=== PATIENT | female | born 1960 | race Hispanic/Latino ===

== ENCOUNTER 2017-05-13 10:50 | Day surgery (SDC) | payer MEDICAID ==
[2017-05-10 09:49] VITALS: BMI 32.1
[2017-05-13] MEDS ORDERED: Lidocaine 1% Inj (20ml) ONE (12:22)
[2017-05-13] MEDS ORDERED: Propofol 10 mg/ml Inj (20 ML) ONE ×3 (12:22→12:57)
[2017-05-13] MEDS ORDERED: Sodium Chloride 0.9% 1,000 ML IV SCH (13:15)
[2017-05-13 13:48] VITALS: RESP 19
[2017-05-13 14:24] VITALS: BP 148/75; PULSE 58; TEMP 97.9; O2SAT 100
[2017-05-13] MEDS ORDERED: Simethicone 40 mg/0.6 ml Liquid (30 ml) ONE (15:05)
== END 2017-05-13 15:00 | disposition home or self-care (01) ==
LOC: ENDO 10:50
PROVIDERS: ATTEND Internal Medicine
DX: K63.5 Polyp of colon (principal); K31.7 Polyp of stomach and duodenum; K57.30 Diverticulosis of large intestine without perforation or abscess without bleeding; K29.70 Gastritis, unspecified, without bleeding; K64.8 Other hemorrhoids; K59.00 Constipation, unspecified
CPT/HCPCS: 43239; 45380; 88305; 88342; J2704; J3010; J7040 ×2

== ENCOUNTER 2017-11-30 16:15 | Inpatient (IN) | payer MEDICAID ==
[2017-11-30] MEDS ORDERED: HYDROmorphone 0.5 mg/0.5 ml ISec IVP STA ×3 (16:40→22:47)
[2017-11-30] MEDS ORDERED: Sodium Chloride 0.9% 1,000 ML IV STA (16:41)
--- NOTE | 2017-11-30 16:48 | ED PDOC ---
Arrival/HPI - General Chief Complaint: Abdominal Pain Time Seen by Provider: 11/30/17 16:25 Historian: Patient - History of Present Illness Narrative History of Present Illness (Text): 11/30/17 16:35 A 57 year old female, whose past medical history includes hypertension and recent gallbladder surgery, presents to the emergency department complaining of severe diffused and increasing abdominal pain for 4 days. Patient reports having recent colescystecomy. Patient has decreased oral intake, and continues to take pain medications. Denies any fever, chills, nausea, vomiting, any urinary symptoms, or any other complaints. Patient denies any history of smoking and has unknown family history. PM:D Dr. Sam Nieto Time/Duration: < week (4 days) Symptom Onset: Gradual Symptom Course: Unchanged Past Medical History - Provider Review Nursing Documentation Reviewed: Yes - Infectious Disease Hx of Infectious Diseases: None - Reproductive Menopause: Yes - Cardiac Hx Pacemaker: No - Neurological Hx Paralysis: No - Hematological/Oncological Hx Blood Transfusions: No Hx Blood Transfusion Reaction: No - Musculoskeletal/Rheumatological Hx Musculoskeletal Disorders: No - Psychiatric Hx Emotional Abuse: No Hx Physical Abuse: No Hx Substance Use: No - Surgical History Hx Cholecystectomy: Yes - Anesthesia Hx Anesthesia Reactions: No Hx Malignant Hyperthermia: No - Suicidal Assessment Feels Threatened In Home Enviroment: No Family/Social History - Physician Review Nursing Documentation Reviewed: Yes Family/Social History: Unknown Family HX Smoking Status: Unknown If Ever Smoked Hx Alcohol Use: No Hx Substance Use: No Allergies/Home Meds Allergies/Adverse Reactions: Allergies iodine Allergy (Verified 11/30/17 16:28) URTICARIA Home Medications: Home Meds Medication Instructions Recorded Confirmed Atenolol [Tenormin] 50 mg PO DAILY 05/10/17 05/13/17 Cyclobenzaprine [Cyclobenzaprine 10 mg PO BID 05/10/17 05/13/17 HCl] Famotidine [Pepcid] 20 mg PO BID 05/10/17 05/13/17 Gabapentin [Neurontin] 300 mg PO DAILY 05/10/17 05/13/17 Omeprazole 20 mg PO DAILY 05/10/17 05/13/17 amLODIPine [Norvasc] 10 mg PO DAILY 05/10/17 05/13/17 Review of Systems - Review of Systems Constitutional: Other (weakness). absent: Fevers, Night Sweats Eyes: Normal ENT: Normal Respiratory: Normal Cardiovascular: Normal Gastrointestinal: Abdominal Pain, Other (decreased oral intake). absent: Nausea , Vomiting Genitourinary Female: Normal Musculoskeletal: Normal Skin: Normal Neurological: Normal Endocrine: Normal Hemo/Lymphatic: Normal Psychiatric: Normal Physical Exam Vital Signs Reviewed: Yes Vital Signs Temp Pulse Resp BP Pulse Ox 11/30/17 16:36 97.5 F L 88 18 168/99 H 97 Temperature: Afebrile Blood Pressure: Hypertensive Pulse: Regular Respiratory Rate: Normal Appearance: Positive for: Well-Appearing (well-hydrated) Pain Distress: Moderate Mental Status: Positive for: Alert and Oriented X 3 - Systems Exam Mouth: Present: Moist Mucous Membranes Respiratory/Chest: Present: Clear to Auscultation, Good Air Exchange. No: Respiratory Distress, Accessory Muscle Use Cardiovascular: Present: Regular Rate and Rhythm, Normal S1, S2. No: Murmurs Abdomen: Present: Tenderness (diffused tenderness to palpation), Scars (not inflammed and not infected). No: Distention, Normal Bowel Sounds, Rebound, Guarding, Mass/Organomegaly Neurological: Present: GCS=15, CN II-XII Intact, Speech Normal Skin: Present: Warm, Dry, Normal Color. No: Rashes Psychiatric: Present: Alert, Oriented x 3, Normal Insight, Normal Concentration Medical Decision Making ED Course and Treatment: 11/30/17 16:38 Impression: 57 year old female with diffused and increasing abdominal pain. Physical exam shows diffused tenderness to palpation to abdomen (no guarding, no rebound), surgical scars present (not inflammed/infected); no masses. Plan: -- Abd/Pelvis CT -- Dilaudid -- IV Fluids -- Labs -- Reassess and disposition Progress Notes: - RAD Interpretation Radiology Orders: 11/30/17 16:38 ABDOMEN & PELVIS [ABD PELVIS PO & IV CONTRAST] [CT] Stat - Medication Orders Current Medication Orders: Hydromorphone HCl (Dilaudid) 0.5 mg IVP STAT STA Stop: 11/30/17 16:41 Sodium Chloride (Sodium Chloride 0.9%) 1,000 mls @ 999 mls/hr IV .Q1H1M STA Stop: 11/30/17 17:41 - Scribe Statement The provider has reviewed the documentation as recorded by the Víctor Escobedo Provider Scribe Attestation: All medical record entries made by the Víctor were at my direction and personally dictated by me. I have reviewed the chart and agree that the record accurately reflects my personal performance of the history, physical exam, medical decision making, and the department course for this patient. I have also personally directed, reviewed, and agree with the discharge instructions and disposition. Disposition/Present on Arrival - Present on Arrival History of DVT/PE: No History of Uncontrolled Diabetes: No Urinary Catheter: No History of Decub. Ulcer: No History Surgical Site Infection Following: Abdominal Surgery - Disposition
[2017-11-30] MEDS ORDERED: Iohexol 350 MG/100 ML VIAL ONE (16:55)
[2017-11-30] MEDS ORDERED: Iohexol 240 (50 ml) ONE (16:55)
[2017-11-30] MEDS ORDERED: Barium Sulfate Susp 2.1% w/v, 2.0% w/w 450 mL Bottle PO ONE (17:06)
[2017-11-30 18:03] LABS: BASO # 0.01 K/mm3 (0.0-2.0); BASO % 0.1 % (0.0-3.0); EOS # 0.2 (0.0-0.7); EOS % 1.7 % (1.5-5.0); GRAN # 7.18 (1.4-6.5); GRAN % 76.7 % (50.0-68.0); LYMPH # 1.5 (1.2-3.4); LYMPH % 15.9 % (22.0-35.0); MEAN CELL VOLUME 91.7 fl (80.0-105.0); MEAN CORPUSCULAR HGB CONC 32.7 g/dl (31.0-37.0); MEAN PLATELET VOLUME 10.1 fl (7.0-11.0); MONO # 0.5 (0.1-0.6); MONO % 5.6 % (1.0-6.0); RBC 4.34 10^6/uL (3.5-6.1); RED CELL DISTRIBUTION WIDTH 13.3 % (11.5-14.5); WHITE BLOOD COUNT 9.4 10^3/ul (4.5-11.0)
[2017-11-30 18:17] LABS: ALB/GLOB RATIO 1.2 (1.1-1.8); ALBUMIN 3.9 g/dL (3.0-4.8); CALCIUM 9.9 mg/dL (8.4-10.5); GFR AFRICAN-AMERICAN > 60; GFR NON-AFRICAN AMERICAN > 60
[2017-11-30 18:22] LABS: ALT/SGPT 75 U/L (7-56); AST/SGOT 61 U/L (14-36); BLOOD UREA NITROGEN 17 mg/dL (7-21)
--- NOTE | 2017-11-30 19:33 | ED PDOC ---
Physical Exam Vital Signs Temp Pulse Resp BP Pulse Ox 11/30/17 16:36 97.5 F L 88 18 168/99 H 97 Medical Decision Making ED Course and Treatment: 11/30/17 19:00 Patient signed out to me by Dr. Renee. Pending CT scan abdomen and pelvis. Patient with history of recent laparoscopic gallbladder surgery. Patient presents for evaluation of continued abdomen pain following surgery. 12/01/17 00:01 CT results conveyed to me by [facility]. CT Abdomen and Pelvis shows: Cholecystectomy with abscess in the ashwin hepatis; possible periportal adenopathy; inflammation in the right upper quadrant with gastric and duodenal inflammation; free fluid and minimal free air; possible constipation. [employer] mortgage [employer] paged. 12/01/17 00:04 Case discussed with surgical specialist concrete block layer, who is aware and agrees with plan. 12/01/17 00:[address] Nieto, who is aware and agrees with plan. Accepts pt in to his service. Requests or Magdaleno on consult. not available. 12/01/17 01:12 Call was placed to Dr. Dolan, pending call back. Case discussed with surgical specialist, who agrees with management and antibiotics for now. - Lab Interpretations Lab Results: 11/30/17 17:32 11/30/17 17:32 Lab Results 11/30/17 17:32: Sodium 140, Potassium 4.7, Chloride 101, Carbon Dioxide 28, Anion Gap 15, BUN 17, Creatinine 0.5 L, Est GFR ( Amer) > 60, Est GFR ( Non-Af Amer) > 60, Random Glucose 128 H, Calcium 9.9, Total Bilirubin 0.7, AST 61 H, ALT 75 H, Alkaline Phosphatase 84, Total Protein 7.2, Albumin 3.9, Globulin 3.3, Albumin/Globulin Ratio 1.2 11/30/17 17:32: WBC 9.4, RBC 4.34, Hgb 13.0, Hct 39.8, MCV 91.7, MCH 30.0, MCHC 32.7, RDW 13.3, Plt Count 216, MPV 10.1, Gran % 76.7 H, Lymph % (Auto) 15.9 L, [place] % (Auto) 5.6, Eos % (Auto) 1.7, Baso % (Auto) 0.1, Gran # 7.18 H, Lymph # ( Auto) 1.5, [place] # (Auto) 0.5, Eos # (Auto) 0.2, Baso # (Auto) 0.01 I have reviewed the lab results: Yes - RAD Interpretation Radiology Orders: 11/30/17 18:10 CHEST,ABDOMEN, PELVIS W/O CONT [CT] Stat Efficiency [employer] Blasting: Radiologist - Medication Orders Current Medication Orders: Atenolol (Tenormin) 50 mg PO DAILY CHANCE Hydromorphone HCl (Dilaudid) 1 mg IVP Q4H PRN PRN Reason: Pain, severe (8-10) Sodium Chloride (Sodium Chloride 0.45%) 1,000 mls @ 70 mls/hr IV .[id number] CHANCE Pantoprazole Sodium (Protonix Inj) 40 mg IVP DAILY CHANCE Discontinued Medications Amlodipine Besylate (Norvasc) 5 mg PO STAT STA Stop: 12/01/17 00:41 Hydromorphone HCl (Dilaudid) 0.5 mg IVP STAT STA Stop: 11/30/17 16:41 Last Admin: 11/30/17 17:52 Dose: 0.5 mg MAR Pain Assessment Document 11/30/17 17:52 [email or web address] (Rec: 11/30/17 17:52 [id number] Pain Reassessment Is this a pain reassessment? No Sleep Is patient sleeping during reassessment? No Pain Scale Used Pain Scale Used Numeric Location Pain Location Body Site Generalized Description Description Constant Intensity of Pain at present 8 Pain Behavior Facial Grimacing Aggravating Factors Changing Position Alleviating Factors/Management Position Change Techniques Alleviating Factors Medication IVP Administration Document 11/30/17 17:52 [email or web address] (Rec: 11/30/17 17:52 [email or web address] [id number]) Charges for Administration # of IVP Administrations 1 Hydromorphone HCl (Dilaudid) 1 mg IVP STAT STA Stop: 11/30/17 22:48 Last Admin: 11/30/17 23:13 Dose: 1 mg MAR Pain Assessment Document 11/30/17 23:13 JOL (Rec: 11/30/17 23:13 JOL [id number]) Pain Reassessment Is this a pain reassessment? No Sleep Is patient sleeping during reassessment? No Presence of Pain Presence of Pain Yes Pain Scale Used Pain Scale Used Numeric Location Pain Location Body Site Abdomen IVP Administration Document 11/30/17 23:13 JOConnor (Rec: 11/30/17 23:13 JOL [id number]) Charges for Administration # of IVP Administrations 1 Sodium Chloride (Sodium Chloride 0.9%) 1,000 mls @ 999 mls/hr IV .Q1H1M STA Stop: 11/30/17 17:41 Last Admin: 11/30/17 17:52 Dose: 999 mls/hr eMAR Start Stop Document 11/30/17 17:52 [email or web address] (Rec: 11/30/17 17:52 CASTS1 [id number]) Intravenous Solution Start Date 11/30/17 Start Time 17:52 End Date 11/30/17 Piperacillin Sod/Tazobactam Sod (Zosyn 3.375 In Ns 100ml) 100 mls @ 200 mls/hr IV STAT STA PRN Reason: Protocol Stop: 12/01/17 00:30 Last Admin: 12/01/17 00:28 Dose: 200 mls/hr eMAR Start Stop Document 12/01/17 00:28 RG (Rec: 12/01/17 00:37 RG [id number]) Intravenous Solution Start Date 12/01/17 Start Time 00:28 Ondansetron HCl (Zofran Inj) 4 mg IVP STAT STA Stop: 11/30/17 17:26 Last Admin: 11/30/17 17:52 Dose: 4 mg IVP Administration Document 11/30/17 17:52 [email or web address] (Rec: 11/30/17 17:52 [email or web address] [id number]) Charges for Administration # of IVP Administrations 1 - Scribe Statement The provider has reviewed the documentation as recorded by the Víctor Sánchez Provider Scribe Attestation: All medical record entries made by the Scribe were at my direction and personally dictated by me. I have reviewed the chart and agree that the record accurately reflects my personal performance of the history, physical exam, medical decision making, and the department course for this patient. I have also personally directed, reviewed, and agree with the discharge instructions and disposition. Disposition/Present on Arrival - Present on Arrival Any Indicators Present on Arrival: No History of DVT/PE: No History of Uncontrolled Diabetes: No Urinary Catheter: No History of Decub. Ulcer: No History Surgical Site Infection Following: None - Disposition Have Diagnosis and Disposition been Completed?: Yes Diagnosis: Intractable abdominal pain, History of laparoscopic cholecystectomy Disposition: HOSPITALIZED Disposition Time: 23:46 Patient Plan: Observation Patient Problems: Current Active Problems Problem Status Onset History of laparoscopic cholecystectomy Acute Intractable abdominal pain Acute Condition: STABLE
--- NOTE | 2017-11-30 23:53 | CT ---
EXAM: CT Chest Without Intravenous Contrast CLINICAL HISTORY: 57 years old, female; Pain; Abdominal pain; Generalized; Chest pain; Type not specified; Additional info: Post-op pain TECHNIQUE: Axial computed tomography images of the chest without intravenous contrast. All CT scans at this facility use one or more dose reduction techniques, viz.: automated exposure control; ma/kV adjustment per patient size (including targeted exams where dose is matched to indication; i.e. head); or iterative reconstruction technique. Coronal and sagittal reformatted images were created and reviewed. COMPARISON: There are no prior studies for comparison. FINDINGS: Artifacts: Motion artifact degrades image quality. Lungs and pleural spaces: Trachea and main bronchi are patent.There is no pneumothorax. There is bilateral lower lobe airspace disease with air bronchograms. There is a small left pleural effusion. There is trace right effusion. Heart and vasculature: Heart size is normal. There are coronary artery calcifications.Aorta and main pulmonary artery are normal in caliber. There are vascular calcifications Mediastinum: There are shotty mediastinal nodes. Miesha and esophagus is unremarkable. There is a small hiatal hernia. Thyroid: Thyroid is unremarkable Bones/joints: There are degenerative changes in the osseus structures. Soft tissues: unremarkable Upper abdomen: Refer to follow report for abdominal findings IMPRESSION: Bibasilar airspace disease, atelectasis and/or infiltrate with small effusions left greater than right EXAM: CT Abdomen and Pelvis Without Intravenous Contrast EXAM DATE/TIME: 11/30/2017 6:10 PM CLINICAL HISTORY: 57 years old, female; Pain; Abdominal pain; Generalized; Chest pain; Type not specified; Additional info: Post-op pain TECHNIQUE: Axial computed tomography images of the abdomen and pelvis without intravenous contrast. All CT scans at this facility use one or more dose reduction techniques, viz.: automated exposure control; ma/kV adjustment per patient size (including targeted exams where dose is matched to indication; i.e. head); or iterative reconstruction technique. COMPARISON: CT - ABD PELVIS PO CONTRAST ONLY 2017-02-26 10:44 FINDINGS: Lower thorax: Refer to prior report or chest findings ABDOMEN: Liver: unremarkable Gallbladder and bile ducts: There is been interval cholecystectomy. There are clips in the ashwin hepatis. There is a complex collection in the ashwin hepatis containing fluid and air.There is prominence of the common duct. Pancreas: Pancreas is mildly atrophic. Spleen: Spleen is unremarkable. There is an accessory spleen in the left upper quadrant. Adrenals: Right adrenal is unremarkable. There is diffuse thickening of the left adrenal. Kidneys and ureters: unremarkable Stomach and bowel: Stomach is distended with an air-fluid level. There is thickening of the gastric antral wall. There is duodenal wall thickening. Rotation is normal. There is no small bowel obstruction. Small bowel is partially opacified with contrast. Terminal ileum is unremarkable. Clip no pericecal there is moderate stool in the colon. Appendix: See stomach and bowel PELVIS: Bladder: unremarkable Reproductive: Uterus and adnexal structures are unremarkable. ABDOMEN and PELVIS: Intraperitoneal space: There is free fluid in the abdomen. There is a small amount of fluid in the pelvis. There is trace free air in the upper abdomen Bones/joints: There are degenerative changes in the osseus structures. There is sclerosis at the sacroiliac joints. Soft tissues: There is postoperative edema in the anterior abdominal wall. There is a small fat containing umbilical hernia. There is inflammation and edema in the right upper quadrant. Vasculature: There are vascular calcifications. Lymph nodes: There is no para-aortic adenopathy. There may be multiple enlarged nodes in the ashwin hepatis. IMPRESSION: Cholecystectomy with abscess in the ashwin hepatis; possible periportal adenopathy; inflammation in the right upper quadrant with gastric and duodenal inflammation; free fluid and minimal free air; possible constipation Additional nonemergent findings as described above.
[2017-12-01] MEDS ORDERED: Piperacillin/Tazobact 3.375 gm 100 ML IV STA (00:01)
[2017-12-01] MEDS ORDERED: HYDROmorphone 0.5 mg/0.5 ml ISec IVP PRN (00:37)
[2017-12-01] MEDS ORDERED: Metoprolol 1 mg/ml Inj IV SCH (00:45)
--- NOTE | 2017-12-01 01:45 | CP.PCM.CON ---
History of Present Illness - History of Present Illness History of Present Illness: Surgery Consult note. Dr. Dolan 57yo F with PMHx of HTN here for evaluation of abdominal pain. Patient states that she had Lap Cholecystectomy by Dr. Suarez on Wednesday. She was discharged home on Wednesday. Yesterday, she started having severe RUQ pain, described as off and on, severe, does not radiate. Does report nausea and vomiting, non-bloody and non-bilious. Denies any fevers, does report chills, diaphoresis. Last food was yesterday, cookies and milk. Does report that she does not want to eat and is worried about worsening pain. Denies any urinary symptoms. No Chest Pain. No SOB. No Bowel habit changes. Has been taking tramadol at home for pain control with mild relief. PMHx: HTN PSHx: Lap Kalee on 11/26/[address] Suarez Social Hx: Denies Tobacco. Denies ETOH. Denies illicit drugs. Allergy: Iodine Review of Systems - Review of Systems All systems: reviewed and no additional remarkable complaints except - Constitutional Constitutional: Anorexia, Chills. absent: Fever - Cardiovascular Cardiovascular: absent: Chest Pain, Dyspnea - Respiratory Respiratory: absent: Dyspnea - Gastrointestinal Gastrointestinal: Abdominal Pain, Nausea, Vomiting. absent: Belching, Diarrhea , Dyspepsia - Genitourinary Genitourinary: absent: Dysuria - Musculoskeletal Musculoskeletal: absent: Back Pain Past Patient History - Infectious Disease Hx of Infectious Diseases: None - Past Social History Smoking Status: Unknown If Ever Smoked - CARDIAC Hx Pacemaker: No - NEUROLOGICAL Hx Paralysis: No - HEMATOLOGICAL/ONCOLOGICAL Hx Blood Transfusions: No Hx Blood Transfusion Reaction: No - MUSCULOSKELETAL/RHEUMATOLOGICAL Hx Musculoskeletal Disorders: No - PSYCHIATRIC Hx Emotional Abuse: No Hx Physical Abuse: No Hx Substance Use: No - SURGICAL HISTORY Hx Cholecystectomy: Yes - ANESTHESIA Hx Anesthesia Reactions: No Hx Malignant Hyperthermia: No Meds Allergies/Adverse Reactions: Allergies Allergy/AdvReac Type Severity Reaction Status Date / Time iodine Allergy URTICARIA Verified 11/30/17 16:28 - Medications Medications: Current Medications Atenolol (Tenormin) 50 mg PO DAILY CHANCE Clonidine HCl (Catapres) 0.1 mg PO Q6H PRN PRN Reason: Systolic Blood Pressure Hydromorphone HCl (Dilaudid) 1 mg IVP Q4H PRN PRN Reason: Pain, severe (8-10) Sodium Chloride (Sodium Chloride 0.45%) 1,000 mls @ 70 mls/hr IV .[id number] CHANCE Piperacillin Sod/Tazobactam Sod (Zosyn 3.375 In Ns 100ml) 100 mls @ 200 mls/hr IVPB Q6 CHANCE PRN Reason: Protocol Stop: 12/01/17 12:29 Pantoprazole Sodium (Protonix Inj) 40 mg IVP DAILY CHANCE Tramadol HCl (Ultram) 50 mg PO TID PRN PRN Reason: Pain, moderate (4-7) Physical Exam - Constitutional Appears: Well, Non-toxic, No Acute Distress - Head Exam Head Exam: ATRAUMATIC, NORMAL INSPECTION, NORMOCEPHALIC - Eye Exam Eye Exam: EOMI, Normal appearance. absent: Scleral icterus - ENT Exam ENT Exam: Mucous Membranes Moist - Respiratory Exam Respiratory Exam: NORMAL BREATHING PATTERN. absent: Accessory Muscle Use, Respiratory Distress - Cardiovascular Exam Cardiovascular Exam: absent: JVD - GI/Abdominal Exam Additional comments: right upper quadrant tenderness to palpation. laprascopic surgery wounds noted with steri-strips in place. Skin edges well approximated. Does exhibit some voluntary guarding. Non distended. No rebound. - Extremities Exam Extremities exam: Positive for: normal inspection. Negative for: calf tenderness - Neurological Exam Neurological exam: Alert, Oriented x3 - Psychiatric Exam Psychiatric exam: Normal Affect, Normal Mood - Skin Skin Exam: Dry, Intact, Normal Color, Warm Results - Vital Signs Recent Vital Signs: Last Vital Signs Temp 97.5 F L 11/30/17 16:36 Pulse 108 H 12/01/17 01:12 Resp 18 12/01/17 01:07 BP 175/93 H 12/01/17 01:12 Pulse Ox 97 12/01/17 01:07 - Labs Result Diagrams: 12/01/17 05:45 12/02/17 05:30 Assessment & Plan - Assessment and Plan (Free Text) Assessment: 57yo F s/p Lap Kalee on 11/26/17, here with post-operative pain. CT scan noted with fluid collection at the ashwin hepatis Plan: - Please consult original operating surgeon, Dr. Suarez - Agree with Abx - Call placed out to Dr. Nieto at 6:38AM to discuss patient care. Awaiting call back. - Continue post-operative surgical management as per Dr. Suarez, Original operating surgeon. Further recs as per Dr. Magdaleno Valera PGY1 surgery pager: [phone]
[2017-12-01 02:30] VITALS: BMI 30.4
[2017-12-01] MEDS: Sodium Chloride 0.45% 1,000 ML IV SCH ×2 (02:44→17:12)
[2017-12-01] MEDS: Piperacillin/Tazobact 3.375 gm 100 ML IVPB SCH ×3 (06:28→17:12)
[2017-12-01 06:35] LABS: HEMOGLOBIN 11.8 g/dL (12.0-16.0); MEAN CELL VOLUME 89.2 fl (80.0-105.0); MEAN CORPUSCULAR HEMOGLOBIN 28.9 pg (25.0-35.0); MEAN CORPUSCULAR HGB CONC 32.3 g/dl (31.0-37.0); MEAN PLATELET VOLUME 9.8 fl (7.0-11.0); RBC 4.09 10^6/uL (3.5-6.1); RED CELL DISTRIBUTION WIDTH 13.1 % (11.5-14.5); WHITE BLOOD COUNT 7.7 10^3/ul (4.5-11.0)
[2017-12-01] MEDS: Morphine 2 mg/ml ISec IVP PRN ×2 (09:11→13:38)
[2017-12-01 10:05] LABS: ALB/GLOB RATIO 1.1 (1.1-1.8); ALBUMIN 3.4 g/dL (3.0-4.8); ALT/SGPT 110 U/L (7-56); AST/SGOT 99 U/L (14-36); BLOOD UREA NITROGEN 11 mg/dL (7-21); CALCIUM 9.2 mg/dL (8.4-10.5); GFR AFRICAN-AMERICAN > 60; GFR NON-AFRICAN AMERICAN > 60
--- NOTE | 2017-12-01 10:35 | CON ---
DATE: 12/01/2017 CARDIOLOGY CONSULTATION HISTORY OF PRESENT ILLNESS: The patient is a 57-year-old woman who presents with nausea and vomiting. She apparently had a LAP ANTHONY performed on Wednesday. She was discharged earlier this week. She then started having upper quadrant pain including nausea and vomiting. PAST MEDICAL HISTORY: Free of cardiac disease. She does suffer from hypertension in which is well-controlled on medications. Negative diabetes mellitus noted. No previous cardiac history. No chest pain or shortness of breath. SOCIAL HISTORY: The patient does not smoke. REVIEW OF SYSTEMS: Fourteen-point review of systems was reviewed in detail. No cardiac symptomatology is noted. PHYSICAL EXAMINATION: VITAL SIGNS: The blood pressure is 159/81, the heart rate is 100. NECK: Negative JVD. LUNGS: Without rales. HEART: With S1, S2. EXTREMITIES: Without edema. LABORATORY DATA: Laboratories includes EKG, which is unremarkable. Hemoglobin is 11.8. Chemistries: BUN and creatinine unremarkable. LFTs are elevated. IMPRESSION: 1. Status post laparoscopic cholecystectomy last week. 2. Hypertension. 3. No evidence for acute coronary syndrome. 4. Increased liver function tests. 5. Borderline diabetes mellitus. PLAN: Given these findings, the patient has currently been placed on clonidine for better blood pressure control. If the patient becomes n.p.o., we will then transfer the patient to a clonidine patch as it bridged until her GI symptomatology is resolved. Sal Gallo MD
--- NOTE | 2017-12-01 15:02 | CP.PCM.CON ---
<GastonHamzah - Last Filed: 12/01/17 14:57> History of Present Illness - History of Present Illness History of Present Illness: GI Consult Note - Dr. Mattson 57 F with a PMHx of HTN [place] [facility] [place] of abdominal pain. Pt was recently discharged from [facility] on 11/26/17 after a lap cholecystectomy with Dr. Suarez. Pt was recovering well over the weekend, however after she ate yesterday she began to experience worsening abdominal pain localized to the RUQ without radiation. She described the pain as sharp stabbing in quality and intermittent. Pt experience nausea and vomiting however has felt relief with zofran. Pt denied fever, chills, sob, chest pains, abdominal pains, vomiting, diarrhea or urinary symptoms. Pt noted that she has not had a bm in over 3 days. PMHx: HTN PSHx: Lap Kalee on 11/26/[address] Suarez Social Hx: Denies Tobacco. Denies ETOH. Denies illicit drugs. FamilyHx: noncontributory Allergy: Iodine Meds: MAR reviewed Review of Systems - Review of Systems Review of Systems: as per HPI otherwise negative Past Patient History - Infectious Disease Hx of Infectious Diseases: None - Past Social History Smoking Status: Unknown If Ever Smoked - CARDIAC Hx Pacemaker: No - PULMONARY Hx Respiratory Disorders: Yes Hx Asthma: Yes (seasonal) - NEUROLOGICAL Hx Paralysis: No - HEENT Hx HEENT Problems: Yes (wears glasses) - RENAL Hx Chronic Kidney Disease: No - ENDOCRINE/METABOLIC Hx Endocrine Disorders: No - HEMATOLOGICAL/ONCOLOGICAL Hx Blood Transfusions: No Hx Blood Transfusion Reaction: No - INTEGUMENTARY Hx Dermatological Problems: No - MUSCULOSKELETAL/RHEUMATOLOGICAL Hx Musculoskeletal Disorders: No - GASTROINTESTINAL Hx Gastrointestinal Disorders: No - GENITOURINARY/GYNECOLOGICAL Hx Genitourinary Disorders: No - PSYCHIATRIC Hx Emotional Abuse: No Hx Physical Abuse: No Hx Substance Use: No - SURGICAL HISTORY Hx Cholecystectomy: Yes - ANESTHESIA Hx Anesthesia Reactions: No Hx Malignant Hyperthermia: No Meds Allergies/Adverse Reactions: Allergies Allergy/AdvReac Type Severity Reaction Status Date / Time iodine Allergy URTICARIA Verified 11/30/17 16:28 - Medications Medications: Current Medications Atenolol (Tenormin) 50 mg PO DAILY [facility] Last Admin: 12/01/17 09:12 Dose: 50 mg Clonidine HCl (Catapres) 0.1 mg PO Q6H PRN PRN Reason: Systolic Blood Pressure Sodium Chloride (Sodium Chloride 0.45%) 1,000 mls @ 70 mls/hr IV .[id number] [facility] Last Admin: 12/01/17 02:44 Dose: 70 mls/hr Piperacillin Sod/Tazobactam Sod (Zosyn 3.375 In Ns 100ml) 100 mls @ 200 mls/hr IVPB Q6 [facility] PRN Reason: Protocol Stop: 12/08/17 06:01 Last Admin: 12/01/17 12:42 Dose: 200 mls/hr Morphine Sulfate (Morphine) 2 mg IVP Q4H PRN PRN Reason: Pain, moderate (4-7) Last Admin: 12/01/17 13:38 Dose: 2 mg Ondansetron HCl (Zofran Inj) 4 mg IVP Q6H PRN PRN Reason: Nausea/Vomiting Last Admin: 12/01/17 10:08 Dose: 4 mg Pantoprazole Sodium (Protonix Inj) 40 mg IVP DAILY [facility] Last Admin: 12/01/17 09:12 Dose: 40 mg Tramadol HCl (Ultram) 50 mg PO TID PRN PRN Reason: Pain, moderate (4-7) Last Admin: 12/01/17 10:13 Dose: 50 mg Physical Exam - Constitutional Appears: No Acute Distress - Head Exam Head Exam: ATRAUMATIC, NORMAL INSPECTION, NORMOCEPHALIC - Eye Exam Eye Exam: EOMI, Normal appearance, PERRL Pupil Exam: NORMAL ACCOMODATION, PERRL - ENT Exam ENT Exam: Mucous Membranes Moist, Normal Exam - Neck Exam Neck exam: Positive for: Normal Inspection - Respiratory Exam Respiratory Exam: Clear to Auscultation Bilateral, NORMAL BREATHING PATTERN - Cardiovascular Exam Cardiovascular Exam: REGULAR RHYTHM, +S1, +S2 - GI/Abdominal Exam GI & Abdominal Exam: Normal Bowel Sounds, Soft, Tenderness (RUQ) - Extremities Exam Extremities exam: Positive for: normal inspection - Back Exam Back exam: NORMAL INSPECTION - Neurological Exam Neurological exam: Alert, CN II-XII Intact, Oriented x3, Reflexes Normal - Psychiatric Exam Psychiatric exam: Normal Affect, Normal Mood - Skin Skin Exam: Dry, Intact, Normal Color, Warm Results - Vital Signs Recent Vital Signs: Last Vital Signs Temp 98.6 F 12/01/17 06:00 Pulse 99 H 12/01/17 06:00 Resp 18 12/01/17 06:00 BP 146/88 12/01/17 06:00 Pulse Ox 95 12/01/17 06:00 - Labs Result Diagrams: 12/01/17 05:45 12/01/17 06:30 Labs: Laboratory Results - last 24 hr 12/01/17 12/01/17 12/01/17 05:45 05:45 06:30 WBC 7.7 RBC 4.09 Hgb 11.8 L Hct 36.5 MCV 89.2 MCH 28.9 MCHC 32.3 RDW 13.1 Plt Count 256 MPV 9.8 Sodium 138 Potassium 4.0 Chloride 99 Carbon Dioxide 30 Anion Gap 13 BUN 11 Creatinine 0.5 L Est GFR ( Amer) > 60 Est GFR (Non-Af Amer) > 60 Random Glucose 146 H Calcium 9.2 Total Bilirubin 0.6 AST 99 H D ALT 110 H Alkaline Phosphatase 88 Total Protein 6.6 Albumin 3.4 Globulin 3.2 Albumin/Globulin Ratio 1.1 Procalcitonin 0.35 Assessment & Plan - Assessment and Plan (Free Text) Assessment: 57 F with a PMHx of HTN and cholecystitis s/p Laproscopic Cholecystectomy on , admitted with post-operative pain. CT Abdomen demonstrated fluid collection/abscess at the ashwin hepatis. Recommend MRCP and HIDA to evaluate for bile leak. Maintain NPO, Continue IV Abx, pain control, zofran. Will discuss with Dr. Suarez and surgical team for any considerations of intervention. Discussed with attending <Darvin Mattson V - Last Filed: 12/01/17 23:29> Meds - Medications Medications: Current Medications Albuterol/Ipratropium (Duoneb 3 Mg/0.5 Mg (3 Ml) Ud) 3 ml IH QID [facility] Last Admin: 12/01/17 20:05 Dose: 3 ml Atenolol (Tenormin) 50 mg PO DAILY [facility] Last Admin: 12/01/17 09:12 Dose: 50 mg Clonidine HCl (Catapres) 0.1 mg PO Q6H PRN PRN Reason: Systolic Blood Pressure Heparin Sodium (Porcine) (Heparin) 5,000 units SC Q12 [facility] PRN Reason: Protocol Last Admin: 12/01/17 22:58 Dose: 5,000 units Sodium Chloride (Sodium Chloride 0.45%) 1,000 mls @ 70 mls/hr IV .[id number] [facility] Last Admin: 12/01/17 17:12 Dose: 70 mls/hr Ceftriaxone Sodium (Rocephin 1 Gram Ivpb) 1 gm in 100 mls @ 100 mls/hr IVPB DAILY [facility] PRN Reason: Protocol Stop: 12/06/17 23:59 Morphine Sulfate (Morphine) 4 mg IVP Q4H PRN PRN Reason: Pain, moderate (4-7) Last Admin: 12/01/17 17:28 Dose: 4 mg Ondansetron HCl (Zofran Inj) 4 mg IVP Q6H PRN PRN Reason: Nausea/Vomiting Last Admin: 12/01/17 17:12 Dose: 4 mg Oxycodone/Acetaminophen (Percocet 5/325 Mg Tab) 1 tab PO Q4H PRN PRN Reason: Pain, Mild (1-3) Stop: 12/04/17 18:23 Last Admin: 12/01/17 20:55 Dose: 1 tab Pantoprazole Sodium (Protonix Inj) 40 mg IVP DAILY [facility] Last Admin: 12/01/17 09:12 Dose: 40 mg Tramadol HCl (Ultram) 50 mg PO TID [facility] Last Admin: 12/01/17 17:12 Dose: 50 mg Results - Vital Signs Recent Vital Signs: Last Vital Signs Temp 98.1 F 12/01/17 16:00 Pulse 85 12/01/17 20:13 Resp 19 12/01/17 16:00 BP 151/92 H 12/01/17 16:00 Pulse Ox 92 L 12/01/17 16:00 - Labs Result Diagrams: 12/01/17 05:45 12/01/17 06:30 Labs: Laboratory Results - last 24 hr 12/01/17 12/01/17 12/01/17 05:45 05:45 06:30 WBC 7.7 RBC 4.09 Hgb 11.8 L Hct 36.5 MCV 89.2 MCH 28.9 MCHC 32.3 RDW 13.1 Plt Count 256 MPV 9.8 Sodium 138 Potassium 4.0 Chloride 99 Carbon Dioxide 30 Anion Gap 13 BUN 11 Creatinine 0.5 L Est GFR ( Amer) > 60 Est GFR (Non-Af Amer) > 60 Random Glucose 146 H Calcium 9.2 Total Bilirubin 0.6 AST 99 H D ALT 110 H Alkaline Phosphatase 88 Total Protein 6.6 Albumin 3.4 Globulin 3.2 Albumin/Globulin Ratio 1.1 Procalcitonin 0.35 Attending/Attestation - Attestation I have personally seen and examined this patient.: Yes I have fully participated in the care of the patient.: Yes I have reviewed all pertinent clinical information: Yes Notes (Text): This is an addendum to GI progress report dictated by the Emulsification Operator.The patient was seen and examined earlier. Medical records, lab studies, imagings were reviewed. Last 24 hours events reviewed. Agreed with the above treatment plan as outlined in Emulsification Operator 's notes the with the addition of the following CT scan reviewed Discussed with Dr. Dolan Discussed with the patient and the patient's family at length previous GI workup was reviewed Patient had endoscopic evaluations done by Dr. Shelley in the past patient did have EGD and colonoscopy done discussed with the Dr. Salmeron Patient will be followed by Dr. Nieto for further GI workup 12/01/17 23:24
[2017-12-01] MEDS ORDERED: Gadodiamide 287 MG/ML VIAL (15ML) IV ONE (15:27)
--- NOTE | 2017-12-01 15:59 | NM ---
PROCEDURE: Nuclear Medicine Hepatobiliary Scan HISTORY: s/p labcholy sever pain COMPARISON: None available. TECHNIQUE: 6.8 mCi of technetium 99m Mebrofenin was administered intravenously. Planar images of the abdomen were obtained at 5 min intervals to 60 mins. Delayed images were also obtained. FINDINGS: The radionuclide initially accumulates in the gallbladder fossa and that extends to the left along the inferior border of the liver and into the left upper quadrant. Findings are consistent with a biliary leak. A message was left with Dr. Dolan at 4 p.m. IMPRESSION: Study positive for biliary leak
--- NOTE | 2017-12-01 16:44 | CP.PCM.CON ---
History of Present Illness - History of Present Illness History of Present Illness: 57 year old female with PMH of HTN just had laparoscopic cholecystectomy done Wednesday last week. She was doing well until yesterday when she had worsening right upper quadrant abdominal pain which was intermittent. This was associated with nausea and vomiting. She denies fever or chills, no headache or dizziness, no chest pain, no SOB, no cough or rhinorrhea, no diarrhea, no dysuria, no sore throat, no dysphagia, but she does have anorexia. CT scan done on this admission is showing possible abscess around the previous gallbladder site. Infectious Diseases consult is requested to further evaluate and manage. Review of Systems - Review of Systems All systems: reviewed and no additional remarkable complaints except (as per HPI ) Past Patient History - Infectious Disease Hx of Infectious Diseases: None - Past Social History Smoking Status: Unknown If Ever Smoked - CARDIAC Hx Pacemaker: No - PULMONARY Hx Respiratory Disorders: Yes Hx Asthma: Yes (seasonal) - NEUROLOGICAL Hx Paralysis: No - HEENT Hx HEENT Problems: Yes (wears glasses) - RENAL Hx Chronic Kidney Disease: No - ENDOCRINE/METABOLIC Hx Endocrine Disorders: No - HEMATOLOGICAL/ONCOLOGICAL Hx Blood Transfusions: No Hx Blood Transfusion Reaction: No - INTEGUMENTARY Hx Dermatological Problems: No - MUSCULOSKELETAL/RHEUMATOLOGICAL Hx Musculoskeletal Disorders: No - GASTROINTESTINAL Hx Gastrointestinal Disorders: No - GENITOURINARY/GYNECOLOGICAL Hx Genitourinary Disorders: No - PSYCHIATRIC Hx Emotional Abuse: No Hx Physical Abuse: No Hx Substance Use: No - SURGICAL HISTORY Hx Cholecystectomy: Yes - ANESTHESIA Hx Anesthesia Reactions: No Hx Malignant Hyperthermia: No Meds Allergies/Adverse Reactions: Allergies Allergy/AdvReac Type Severity Reaction Status Date / Time iodine Allergy URTICARIA Verified 11/30/17 16:28 - Medications Medications: Current Medications Atenolol (Tenormin) 50 mg PO DAILY [facility] Clonidine HCl (Catapres) 0.1 mg PO Q6H PRN PRN Reason: Systolic Blood Pressure Sodium Chloride (Sodium Chloride 0.45%) 1,000 mls @ 70 mls/hr IV .[id number] [facility] Last Admin: 12/01/17 02:44 Dose: 70 mls/hr Piperacillin Sod/Tazobactam Sod (Zosyn 3.375 In Ns 100ml) 100 mls @ 200 mls/hr IVPB Q6 [facility] PRN Reason: Protocol Stop: 12/08/17 06:01 Last Admin: 12/01/17 06:28 Dose: 200 mls/hr Morphine Sulfate (Morphine) 2 mg IVP Q4H PRN PRN Reason: Pain, moderate (4-7) Ondansetron HCl (Zofran Inj) 4 mg IVP Q6H PRN PRN Reason: Nausea/Vomiting Pantoprazole Sodium (Protonix Inj) 40 mg IVP DAILY [facility] Tramadol HCl (Ultram) 50 mg PO TID PRN PRN Reason: Pain, moderate (4-7) Last Admin: 12/01/17 04:12 Dose: 50 mg Physical Exam - Constitutional Appears: Non-toxic - Head Exam Head Exam: NORMAL INSPECTION - ENT Exam ENT Exam: Mucous Membranes Moist - Neck Exam Neck exam: Negative for: Meningismus - Respiratory Exam Respiratory Exam: Decreased Breath Sounds. absent: Rales - Cardiovascular Exam Cardiovascular Exam: +S1, +S2 - GI/Abdominal Exam GI & Abdominal Exam: Soft, Tenderness (RUQ area). absent: Distended, Firm, Guarding, Rebound, Rigid Results - Vital Signs Recent Vital Signs: Last Vital Signs Temp 98.4 F 12/01/17 02:00 Pulse 108 H 12/01/17 02:00 Resp 20 12/01/17 02:00 BP 159/81 H 12/01/17 02:00 Pulse Ox 97 12/01/17 01:07 - Labs Result Diagrams: 12/01/17 05:45 12/01/17 06:30 Labs: Laboratory Results - last 24 hr 12/01/17 05:45 WBC 7.7 RBC 4.09 Hgb 11.8 L Hct 36.5 MCV 89.2 MCH 28.9 MCHC 32.3 RDW 13.1 Plt Count 256 MPV 9.8 Assessment & Plan - Assessment and Plan (Free Text) Plan: Assessment Consider right upper quadarant area intra-abdominal fluid collection R/O abscess S/P laparoscopic cholecystectomy HTN Plan Started patient on Zosyn pending blood cx; follow up plan for drainage of the fluid collection will monitor clinically
[2017-12-01] MEDS: Morphine 4 mg/ml ISec IVP PRN (17:28)
[2017-12-01] MEDS: Albuterol-Ipratrop 3 mg / 0.5 (3 ml) UD IH SCH (20:05)
[2017-12-01] MEDS: Oxycodone/Acetaminophen 5/325 mg Tab PO PRN (20:55)
[2017-12-02] MEDS: Oxycodone/Acetaminophen 5/325 mg Tab PO PRN ×3 (02:32→20:05)
[2017-12-02] MEDS: Sodium Chloride 0.45% 1,000 ML IV SCH ×2 (02:33→09:49)
[2017-12-02] MEDS: Morphine 4 mg/ml ISec IVP PRN ×2 (03:40→11:30)
[2017-12-02 07:08] LABS: ALBUMIN 3.1 g/dL (3.0-4.8); ALT/SGPT 134 U/L (7-56); AST/SGOT 90 U/L (14-36); BLOOD UREA NITROGEN 11 mg/dL (7-21); CALCIUM 9.1 mg/dL (8.4-10.5); GFR AFRICAN-AMERICAN > 60; GFR NON-AFRICAN AMERICAN > 60
[2017-12-02] MEDS: Albuterol-Ipratrop 3 mg / 0.5 (3 ml) UD IH SCH ×5 (07:25→22:51)
--- NOTE | 2017-12-02 07:38 | CON ---
DATE: HISTORY OF PRESENT ILLNESS: This is a 57-year-old female who presented to the emergency room with postop day #4 with right upper quadrant pain as well as umbilical pain. She was admitted for more study for post cholecystectomy pain. No nausea, no vomiting, no fever, no chills. She was tolerating diet. Her labs were completely normal. She had CT scan that was seen as possible abscess, while in fact, it is more like Surgicel that was placed in the liver bed. The story with this patient is that she was initially admitted to [facility] for cholelithiasis and diffuse calcinosis of the gallbladder, and she was discharged to home. She continued to suffer pain in recurrent nature with meals and she was admitted to the [facility] for severe abdominal pain. So, she had laparoscopic cholecystectomy 5 days ago and the pathology came back as positive for acute and chronic cholecystitis with cholelithiasis. During her surgery, the large gallbladder was embedded in the lower portion in the liver; so we have to dig it out and she had some bleeding from the liver bed for which we have to place 2 sheets of Surgicel during this case. Postop we left also a drain, and postop she did well. She was tolerating diet right away, and the SHELBY drain was actually minimal; so, we decided to take it before discharge on postop day #3. PAST MEDICAL HISTORY: Hypertension only. PAST SURGICAL HISTORY: Unknown. ALLERGIES: NONE. MEDICATIONS AT HOME: She is using amlodipine and atenolol. SOCIAL HISTORY: No smoking, no drinking, no drug abuse. FAMILY HISTORY: Not very significant. She is not complaining of any change in her urine color or stool color. PHYSICAL EXAMINATION: VITAL SIGNS: She is afebrile. Vital signs are stable. GENERAL: She is alert and oriented x3, in no acute distress. HEENT: No pallor or jaundice. NECK: Supple. Trachea in the midline. No lymphadenopathy. No thyromegaly. ABDOMEN: Soft, tender in the periumbilical area, but no rebound, no guarding, no peritonitis. EXTREMITIES: All within normal limits. LABORATORY DATA: Her laboratory on the hospital was white count is 7.7 on admission, hemoglobin 11, hematocrit is 36, and platelet count 256, with a neutrophil shift of 76%. Her chemistry is also normal, but AST was 99, currently is 61; ALT was 110, currently is 75; alk phos is 84, and total bili is 0.7. Patient had CT scan that was suspicious of possible abscess at the site of the gallbladder bed, which represent the Surgicel that Radiology not aware of. Patient then went for HIDA scan and the HIDA scan shows a leak in the gallbladder bed, gallbladder fossa, and extends along the inferior border of the liver. There was no mention of the tracer in the bowel yet, do not know if the delayed images were taken or not yet, and we could not open that delayed image in the computer system. She also went for MRCP, which also we could not visualize those images as well. IMPRESSION: Post cholecystectomy syndrome due to possible bile leak and almost confident that it is most likely due to we have to dig deeper to take the gallbladder out, unlikely to be coming from the cystic duct or common bile duct, but we will wait the confirmation from the common bile duct. PLAN: 1. We are waiting for the final result of MRCP and HIDA scan, and see the image itself as the image is not showing yet. 2. No need for antibiotics. 3. Patient to be seen by GI, and since there is no accumulation of this bile, there is no need for CT-guided drainage. Regarding the stenting of the duct to minimize the pressure across the bile flow, we will leave this to the charging manipulator. Quin Suarez MD cc:
--- NOTE | 2017-12-02 08:14 | PN ---
DATE: 12/01/2017 SUBJECTIVE: The patient is on the bedside. She is sitting on the bedside. She complained of pain. Pain wakes her up and she has to get up. Pain gets worse when she lie down or when she stand up, gets worse and the pain usually wakes her up from sleep. She cannot lie down because of pain. Otherwise, there is no other complaint. No chest pain. No shortness of breath. No leg pain. No other complaint. She does feel nauseous and she is getting Zofran for that. PHYSICAL EXAMINATION: VITAL SIGNS: Temperature 97.5, heart rate 88, blood pressure 160/99, respirations 18, saturation 97% on room air. HEAD AND NECK: Normal. No JVD. No thyromegaly. CHEST: Diminished breath sounds. Clear. No wheezing. CARDIAC: First sound and second sound normal. No murmur, rub or gallop. ABDOMEN: Tender upper abdomen with laparoscopic scar area. The bowel sounds are intact. EXTREMITIES: No edema. NEUROLOGIC: Normal. LABORATORY DATA: Laboratory study came in. Sodium 138, potassium 4, chloride 99, bicarb 30, BUN 11, creatinine 0.5. Liver enzymes are as follow: AST 99, which went up slightly from 61 a day before that. ALT 110, which went up from previous lab 75. CBC shows white count 7.7, hemoglobin 11.8, hematocrit 36.5 and platelets 256. The patient has biliary scan, which shows biliary leak going from the right area upper quadrant all the way to the left upper quadrant, which she complained of pain also on that area. MRCP was done and still not available for reading. IMPRESSION AND PLAN: 1. Abdominal pain, status post laparoscopic cholecystectomy, biliary leak. We will continue IV antibiotics. Continue IV fluid. Keep the patient n.p.o. We will get a Gastroenterology consult. Already, the patient was seen by Gastroenterology consultation, Dr. Mattson and we will get Dr. Yunier Shelley which she has been seen by him before for colonoscopy and upper endoscopy for further evaluation. We will continue Protonix and we will follow up clinically. 2. Hypertension, stable. Continue current medication. The patient was given clonidine p.r.n. for any systolic above 170 and she was given Tenormin 50 mg once a day and she was given Norvasc 10 mg once a day. Otherwise, the patient is stable. 3. The patient does have a history of asthma. Continue DuoNeb for asthma. 4. The patient seems lying down, not moving a lot. We will continue heparin 5000 q. 12 plus sequential compression devices for deep venous thrombosis prophylaxis and add also incentive spirometry. We will continue gastrointestinal prophylaxis, Protonix IV and we will follow up clinically with other real estate listing consultant. Discussed with Gastroenterology real estate listing consultant on the case. Surgical consult, Dr. Dolan and the patient currently getting Rocephin [address] Suarez, surgical consult in addition to Dr. Dolan for which she had the surgery done. Continue Rocephin for now IV daily and we will follow up clinically. Continue current therapy. Sam Nieto MD
[2017-12-02] MEDS ORDERED: Indomethacin 50 MG Suppository PR ONE (09:32)
[2017-12-02] MEDS ORDERED: Iohexol 240 (50 ml) ONE (09:33)
[2017-12-02] MEDS: cefTRIAXone 1 gm 1 GM/100 ML BAG IVPB SCH (09:49)
--- NOTE | 2017-12-02 10:05 | CP.PCM.CON ---
<Jey Chaney - Last Filed: 12/02/17 11:08> History of Present Illness - History of Present Illness History of Present Illness: PGY4 Initial GI Consult Charlene Sood is a 57 F with a PMHx of HTN presented to [facility] with complaints of abdominal pain. Pt was recently discharged from [facility] on 11/26/17 after a lap cholecystectomy with Dr. Suarez. Pt was recovering well over the weekend, however after she ate yesterday she began to experience worsening abdominal pain localized to the RUQ with radiation to LUQ. She described the pain as sharp stabbing in quality and intermittent. Pt experience nausea and vomiting however has felt relief with zofran. Pt denied fever, sob, chest pains. Pt noted that she has not had a bm in over 3 days. She notes having chills. CT of the abd revealed a collection at the [facility] and HIDA scan revealed a bile leak. 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 PMHx: HTN PSHx: Lap Kalee on 11/26/[address] Suarez Social Hx: Denies Tobacco. Denies ETOH. Denies illicit drugs. FamilyHx: noncontributory Allergy: Iodine Meds: MAR reviewed ROS: 12-point ROS conducted, neg other than above Past Patient History - Infectious Disease Hx of Infectious Diseases: None - Past Social History Smoking Status: Unknown If Ever Smoked - CARDIAC Hx Pacemaker: No - PULMONARY Hx Respiratory Disorders: Yes Hx Asthma: Yes (seasonal) - NEUROLOGICAL Hx Paralysis: No - HEENT Hx HEENT Problems: Yes (wears glasses) - RENAL Hx Chronic Kidney Disease: No - ENDOCRINE/METABOLIC Hx Endocrine Disorders: No - HEMATOLOGICAL/ONCOLOGICAL Hx Blood Transfusions: No Hx Blood Transfusion Reaction: No - INTEGUMENTARY Hx Dermatological Problems: No - MUSCULOSKELETAL/RHEUMATOLOGICAL Hx Musculoskeletal Disorders: No - GASTROINTESTINAL Hx Gastrointestinal Disorders: No - GENITOURINARY/GYNECOLOGICAL Hx Genitourinary Disorders: No - PSYCHIATRIC Hx Emotional Abuse: No Hx Physical Abuse: No Hx Substance Use: No - SURGICAL HISTORY Hx Cholecystectomy: Yes - ANESTHESIA Hx Anesthesia Reactions: No Hx Malignant Hyperthermia: No Meds Allergies/Adverse Reactions: Allergies Allergy/AdvReac Type Severity Reaction Status Date / Time iodine Allergy URTICARIA Verified 11/30/17 16:28 - Medications Medications: Current Medications Albuterol/Ipratropium (Duoneb 3 Mg/0.5 Mg (3 Ml) Ud) 3 ml IH QID [facility] Last Admin: 12/02/17 07:25 Dose: 3 ml Amlodipine Besylate (Norvasc) 10 mg PO DAILY [facility] Last Admin: 12/02/17 09:48 Dose: 10 mg Atenolol (Tenormin) 50 mg PO DAILY [facility] Last Admin: 12/02/17 09:48 Dose: 50 mg Bisacodyl (Dulcolax) 10 mg RC DAILY [facility] Stop: 12/07/17 10:01 Last Admin: 12/02/17 09:48 Dose: 10 mg Clonidine HCl (Catapres) 0.1 mg PO Q6H PRN PRN Reason: Systolic Blood Pressure Heparin Sodium (Porcine) (Heparin) 5,000 units SC Q12 [facility] PRN Reason: Protocol Last Admin: 12/02/17 09:47 Dose: 5,000 units Sodium Chloride (Sodium Chloride 0.45%) 1,000 mls @ 70 mls/hr IV .[id number] [facility] Last Admin: 12/02/17 09:49 Dose: 70 mls/hr Ceftriaxone Sodium (Rocephin 1 Gram Ivpb) 1 gm in 100 mls @ 100 mls/hr IVPB DAILY [facility] PRN Reason: Protocol Stop: 12/06/17 23:59 Last Admin: 12/02/17 09:49 Dose: 100 mls/hr Morphine Sulfate (Morphine) 4 mg IVP Q4H PRN PRN Reason: Pain, moderate (4-7) Last Admin: 12/02/17 03:40 Dose: 4 mg Ondansetron HCl (Zofran Inj) 4 mg IVP Q6H PRN PRN Reason: Nausea/Vomiting Last Admin: 12/02/17 03:18 Dose: 4 mg Oxycodone/Acetaminophen (Percocet 5/325 Mg Tab) 1 tab PO Q4H PRN PRN Reason: Pain, Mild (1-3) Stop: 12/04/17 18:23 Last Admin: 12/02/17 06:39 Dose: 1 tab Pantoprazole Sodium (Protonix Inj) 40 mg IVP DAILY [facility] Last Admin: 12/02/17 09:48 Dose: 40 mg Tramadol HCl (Ultram) 50 mg PO TID [facility] Last Admin: 12/02/17 09:48 Dose: 50 mg Physical Exam - Constitutional Appears: Well, No Acute Distress - Head Exam Head Exam: ATRAUMATIC, NORMOCEPHALIC - Eye Exam Eye Exam: Normal appearance - ENT Exam ENT Exam: Mucous Membranes Moist, Normal Exam - Neck Exam Neck exam: Positive for: Normal Inspection - Respiratory Exam Respiratory Exam: Clear to Auscultation Bilateral, NORMAL BREATHING PATTERN. absent: Rales, Rhonchi, Wheezes - Cardiovascular Exam Cardiovascular Exam: REGULAR RHYTHM, +S1, +S2 - GI/Abdominal Exam GI & Abdominal Exam: Soft, Tenderness (luq and RUQ). absent: Distended, Firm, Guarding, Hernia, Rebound, Rigid - Extremities Exam Extremities exam: Negative for: joint swelling, pedal edema - Neurological Exam Neurological exam: Alert, Oriented x3 - Psychiatric Exam Psychiatric exam: Normal Affect, Normal Mood - Skin Skin Exam: Dry, Intact, Normal Color, Warm Results - Vital Signs Recent Vital Signs: Last Vital Signs Temp 98.4 F 12/02/17 08:33 Pulse 88 12/02/17 08:33 Resp 22 12/02/17 08:33 BP 155/88 H 12/02/17 09:48 Pulse Ox 92 L 12/01/17 16:00 - Labs Result Diagrams: 12/01/17 05:45 12/02/17 05:30 Labs: Laboratory Results - last 24 hr 12/01/17 12/01/17 12/02/17 05:45 06:30 05:30 Sodium 138 138 Potassium 4.0 3.8 Chloride 99 100 Carbon Dioxide 30 26 Anion Gap 13 15 BUN 11 11 Creatinine 0.5 L 0.6 L Est GFR ( Amer) > 60 > 60 Est GFR (Non-Af Amer) > 60 > 60 Random Glucose 146 H 110 Calcium 9.2 9.1 Total Bilirubin 0.6 1.0 AST 99 H D 90 H ALT 110 H 134 H Alkaline Phosphatase 88 115 Total Protein 6.6 6.1 Albumin 3.4 3.1 Globulin 3.2 3.0 Albumin/Globulin Ratio 1.1 1.0 L Procalcitonin 0.35 Assessment & Plan - Assessment and Plan (Free Text) Assessment: Charlene Sood is a 57F w/ hx of HTn who presented with abdominal pain Bile leak, s/p Lap kalee Biloma Hx of Porcelain gallbladder Plan: -keep NPO -ERCP today with probable stent placement -consult IR for percutaneous drain of the fluid collection -continue abx -pain control as per primary team -rest of care as per surgery and primary team D/W Dr. Shelley <Yunier Shelley - Last Filed: 12/02/17 13:06> Meds - Medications Medications: Current Medications Albuterol/Ipratropium (Duoneb 3 Mg/0.5 Mg (3 Ml) Ud) 3 ml IH QID [facility] Last Admin: 12/02/17 11:35 Dose: 3 ml Amlodipine Besylate (Norvasc) 10 mg PO DAILY [facility] Last Admin: 12/02/17 09:48 Dose: 10 mg Atenolol (Tenormin) 50 mg PO DAILY [facility] Last Admin: 12/02/17 09:48 Dose: 50 mg Bisacodyl (Dulcolax) 10 mg RC DAILY [facility] Stop: 12/07/17 10:01 Last Admin: 12/02/17 09:48 Dose: 10 mg Clonidine HCl (Catapres) 0.1 mg PO Q6H PRN PRN Reason: Systolic Blood Pressure Heparin Sodium (Porcine) (Heparin) 5,000 units SC Q12 [facility] PRN Reason: Protocol Last Admin: 12/02/17 09:47 Dose: 5,000 units Sodium Chloride (Sodium Chloride 0.45%) 1,000 mls @ 70 mls/hr IV .[id number] [facility] Last Admin: 12/02/17 09:49 Dose: 70 mls/hr Ceftriaxone Sodium (Rocephin 1 Gram Ivpb) 1 gm in 100 mls @ 100 mls/hr IVPB DAILY [facility] PRN Reason: Protocol Stop: 12/06/17 23:59 Last Admin: 12/02/17 09:49 Dose: 100 mls/hr Morphine Sulfate (Morphine) 4 mg IVP Q4H PRN PRN Reason: Pain, moderate (4-7) Last Admin: 12/02/17 11:30 Dose: 4 mg Ondansetron HCl (Zofran Inj) 4 mg IVP Q6H PRN PRN Reason: Nausea/Vomiting Last Admin: 12/02/17 11:26 Dose: 4 mg Oxycodone/Acetaminophen (Percocet 5/325 Mg Tab) 1 tab PO Q4H PRN PRN Reason: Pain, Mild (1-3) Stop: 12/04/17 18:23 Last Admin: 12/02/17 06:39 Dose: 1 tab Pantoprazole Sodium (Protonix Inj) 40 mg IVP DAILY [facility] Last Admin: 12/02/17 09:48 Dose: 40 mg Tramadol HCl (Ultram) 50 mg PO TID [facility] Last Admin: 12/02/17 09:48 Dose: 50 mg Results - Vital Signs Recent Vital Signs: Last Vital Signs Temp 98.4 F 12/02/17 08:33 Pulse 88 12/02/17 08:33 Resp 22 12/02/17 08:33 BP 155/88 H 12/02/17 09:48 Pulse Ox 92 L 12/01/17 16:00 - Labs Result Diagrams: 12/01/17 05:45 12/02/17 05:30 Attending/Attestation - Attestation I have personally seen and examined this patient.: Yes I have fully participated in the care of the patient.: Yes I have reviewed all pertinent clinical information: Yes Notes (Text): 12/02/17 13:05 57 year old female with h/o porcelain gallbladder, gallstones s/p lap kalee c/b bile leak. Recommend broad spectrum antibiotic. Recommend ERCP today with stent placement. Consider percutaneous drainage of biloma.
--- NOTE | 2017-12-02 10:07 | MRI ---
PROCEDURE: MRI Abdomen with and without contrast plus MRCP imaging HISTORY: Recent cholecystectomy. COMPARISON: Nuclear medicine HIDA scan obtained the same day. TECHNIQUE: Multisequence, multiplanar MR images of the abdomen with and without gadolinium contrast enhancement. 15 cc of Omniscan FINDINGS: LIVER: The nuclear medicine study showed evidence of a biliary leak. The MRI a shows fluid in the gallbladder fossa and over the dome of the liver as well as in the left upper quadrant. GALLBLADDER: The gallbladder is been removed. The common duct is normal in caliber with no obstruction. SPLEEN: Unremarkable. PANCREAS: Unremarkable. ADRENALS: Unremarkable. KIDNEYS: Unremarkable. AORTA: No aneurysm. ASCITES: As above PERITONEUM: Unremarkable. LYMPH NODES: Unremarkable. OTHER FINDINGS: The report concurs with the preliminary [facility] report IMPRESSION: Fluid collection in the gallbladder fossa as well as fluid over the dome of the liver and in the left upper quadrant corresponding to the biliary leak demonstrated on nuclear medicine study No evidence of common duct stone or obstruction.
--- NOTE | 2017-12-02 11:01 | CARD ---
APPROVED REPORT EKG Measurement Heart [id number] <Conclusion> Normal sinus rhythm Normal ECG
--- NOTE | 2017-12-02 11:17 | CP.PCM.PN ---
Subjective - Date & Time of Evaluation Date of Evaluation: 12/02/17 Time of Evaluation: 09:40 - Subjective Subjective: Less abdominal pain, no fevers, no diarrhea, not in distress. Objective - Vital Signs/Intake and Output Vital Signs (last 24 hours): Temp Pulse Resp BP Pulse Ox 98.4 F 88 22 168/88 H 92 L 12/02/17 08:33 12/02/17 08:33 12/02/17 08:33 12/02/17 08:33 12/01/17 16:00 Intake and Output: 12/02/17 12/02/17 06:59 18:59 Intake Total 1120 Balance 1120 - Medications Medications: Current Medications Albuterol/Ipratropium (Duoneb 3 Mg/0.5 Mg (3 Ml) Ud) 3 ml IH QID [facility] Last Admin: 12/02/17 07:25 Dose: 3 ml Amlodipine Besylate (Norvasc) 10 mg PO DAILY [facility] Atenolol (Tenormin) 50 mg PO DAILY [facility] Last Admin: 12/01/17 09:12 Dose: 50 mg Bisacodyl (Dulcolax) 10 mg RC DAILY [facility] Stop: 12/07/17 10:01 Clonidine HCl (Catapres) 0.1 mg PO Q6H PRN PRN Reason: Systolic Blood Pressure Heparin Sodium (Porcine) (Heparin) 5,000 units SC Q12 [facility] PRN Reason: Protocol Last Admin: 12/01/17 22:58 Dose: 5,000 units Sodium Chloride (Sodium Chloride 0.45%) 1,000 mls @ 70 mls/hr IV .[id number] [facility] Last Admin: 12/02/17 02:33 Dose: 70 mls/hr Ceftriaxone Sodium (Rocephin 1 Gram Ivpb) 1 gm in 100 mls @ 100 mls/hr IVPB DAILY [facility] PRN Reason: Protocol Stop: 12/06/17 23:59 Morphine Sulfate (Morphine) 4 mg IVP Q4H PRN PRN Reason: Pain, moderate (4-7) Last Admin: 12/02/17 03:40 Dose: 4 mg Ondansetron HCl (Zofran Inj) 4 mg IVP Q6H PRN PRN Reason: Nausea/Vomiting Last Admin: 12/02/17 03:18 Dose: 4 mg Oxycodone/Acetaminophen (Percocet 5/325 Mg Tab) 1 tab PO Q4H PRN PRN Reason: Pain, Mild (1-3) Stop: 12/04/17 18:23 Last Admin: 12/02/17 06:39 Dose: 1 tab Pantoprazole Sodium (Protonix Inj) 40 mg IVP DAILY [facility] Last Admin: 12/01/17 09:12 Dose: 40 mg Tramadol HCl (Ultram) 50 mg PO TID [facility] Last Admin: 12/01/17 17:12 Dose: 50 mg - Labs Labs: 12/01/17 05:45 12/02/17 05:30 - Constitutional Appears: Non-toxic, Chronically Ill - Head Exam Head Exam: NORMAL INSPECTION - ENT Exam ENT Exam: Mucous Membranes Moist - Neck Exam Neck Exam: absent: Meningismus - Respiratory Exam Respiratory Exam: Decreased Breath Sounds - Cardiovascular Exam Cardiovascular Exam: +S1, +S2 - GI/Abdominal Exam GI & Abdominal Exam: Soft, Tenderness (RUQ). absent: Distended, Guarding, Rigid , Rebound Assessment and Plan - Assessment and Plan (Free Text) Plan: Assessment Consider right upper quadarant area intra-abdominal fluid collection from biliary leak R/O abscess S/P laparoscopic cholecystectomy HTN Plan continue Zosyn day 2; blood cx are negative; follow up plan for drainage of the fluid collection will continue to monitor clinically
[2017-12-02] MEDS ORDERED: Midazolam 2 MG/2 ML VIAL ONE (13:59)
[2017-12-02] MEDS ORDERED: Propofol 10 mg/ml Inj (20 ML) ONE (13:59)
[2017-12-02] MEDS ORDERED: Succinylcholine 200 mg/10 ml Inj IV ONE (14:18)
[2017-12-02] MEDS ORDERED: DiphenhydrAMINE 50 mg/ml Inj ONE (14:45)
[2017-12-02] MEDS ORDERED: HYDROmorphone 0.5 mg/0.5 ml ISec IVP PRN (15:34)
--- NOTE | 2017-12-02 18:59 | HP ---
DATE OF EXAM: 11/30/2017 REASON FOR ADMISSION: Abdominal pain. HISTORY OF PRESENT ILLNESS: This is a 57-year-old female with a recent history of laparoscopic cholecystectomy. Patient had this procedure done 3 days ago before this admission, Wednesday night. Patient had been in the hospital for 2 days postoperatively and she had drained for bile as per Dr. Suarez and which was removed before discharge. Patient also had been ill at home for a day and she was feeling okay. She has some pain, but she ate and she was okay. Before the day of admission, patient developed pain when she was sleeping. The pain intensified waking her up from sleep and she could not tolerate it, also she took some pain medications and did not work. She came to the hospital for evaluation. She denied any fever. She denied any chills. She denied dysuria. She does feel sometimes cannot take a deep breath because of pain in the belly. Otherwise, patient is comfortable. PAST MEDICAL HISTORY: Patient does have a history of hypertension. Has a history of asthma. She does have a history of chronic back pain, chronic knee arthritis, obesity, hypertension, prediabetes. She had a recent history of cholecystectomy due to calcified gallbladder and multiple gallstones. She is otherwise negative. ALLERGIES: IODINE. FAMILY HISTORY: Her sister has lymphoma. REVIEW OF SYSTEMS: As in the present illness. She also complained of back pain, knee pain, the pain goes to her legs when standing, and she also has acid reflux symptoms and had endoscopy by Dr. Yunier Shelley for that. Also, she had a colonoscopy which was negative. MEDICATIONS AT HOME: Patient does take atenolol 50 mg. She also takes Norvasc 10 mg, Neurontin 300 mg, Pepcid 20 b.i.d., omeprazole 40 mg. patient also is taking fentanyl patch every 3 days. PHYSICAL EXAMINATION: GENERAL: Patient was lying in bed in the emergency room. She was seen in the room 9 and she was lying down after she got Dilaudid and seems comfortable. VITAL SIGNS: At the time is as follows; temperature 97.5, heart rate 88, blood pressure 168/99, saturation 97% on room air. HEAD AND NECK: Normal. No JVD. No thyromegaly. CHEST: Clear, but there are diminished breath sounds due to not taking full deep breath. CARDIAC: First sound and second sound normal. ABDOMEN: There is tenderness in the upper abdomen, right and left upper quadrant area. Bowel sounds intact. EXTREMITIES: No edema. NEUROLOGIC: Normal. LABORATORY STUDY: Sodium 140, potassium 4.7, chloride 101, bicarb 28. BUN 17, creatinine 0.5. Her blood sugar is 128. Her AST 61, her ALT 75. Albumin is 3.9, globulin 3.3, total protein 7.2. Patient also had procalcitonin which was in normal range. Her blood count shows white count 9.4, hemoglobin 15, hematocrit 39.8, platelets 216 and she has left shift. Patient also had CT chest and CT abdomen and pelvis with p.o. contrast, which shows the following; there is some atelectasis, questionable infiltrates in the CAT scan of the chest. In the abdomen, there is a questionable abscess and there is a complex collection and ashwin hepatis containing fluid and air. Her pancreas is mildly atrophic, spleen is unremarkable. There is accessory spleen. Stomach and bowels distended . There is thickening of the gastric antral wall. There is a duodenal wall thickening, otherwise negative. IMPRESSION AND PLAN: This is a 57-year-old female with hypertension, obesity, status post laparoscopic cholecystectomy. Probably patient has postoperative complications, possible leak, possible pain due to surgery. PLAN: Plan is to admit the patient, get GI consultations, Surgical consultations, and also start IV antibiotics for possible collections, which could be from surgery, but doubt abscess in the fever and leukocytosis and quick collection. At this time, we will continue antibiotics. We will follow up clinically and discuss with her other consultants. We will also get an ID consult and manage her blood pressure on a regular basis. We will continue GI and DVT prophylaxis, IV antibiotics, pain medications as tolerated for pain relief and IV fluids. Patient has SCDs, IV fluids, IV Protonix, and we will discuss with the patient and patient's son in detail. Sam Nieto MD
--- NOTE | 2017-12-02 22:32 | PN ---
DATE: 12/02/2017 SUBJECTIVE: I had long conversation with Dr. Yunier Shelley, who saw the patient, who is aware of the patient even before the admission and we agreed about the ERCP and possible stent placement. He called me after the procedure and asked what was happening. Reviewing the MRCP, it shows some fluid in the gallbladder fossa as well as above the dome of the liver. I believe this is the bile or the fluid in the gallbladder fossa. It is a saturated Surgicel . Patient is doing well after the procedure. We will resume clear liquid diet and we will maintain the same medication level for pain. Discussed the case with the family. Quin Suarez MD cc: Yunier Shelley MD
[2017-12-02 22:43] LABS: URINE BILIRUBIN SMALL (NEGATIVE); URINE BLOOD NEGATIVE (NEGATIVE); URINE GLUCOSE (UA) NEGATIVE (NEGATIVE); URINE LEUKOCYTE ESTERASE SMALL Leu/uL (NEGATIVE); URINE NITRATE NEGATIVE (NEGATIVE); URINE PROTEIN NEGATIVE mg/dL (<30 mg/dL)
[2017-12-02 22:44] LABS: URINE APPEARANCE CLEAR (CLEAR); URINE COLOR YELLOW (YELLOW)
[2017-12-02 22:57] LABS: URINE RBC NEGATIVE /hpf (0-2)
[2017-12-02 22:58] LABS: URINE WBC 0 - 2 /hpf (0-6)
[2017-12-03] MEDS: Sodium Chloride 0.45% 1,000 ML IV SCH ×2 (02:28→10:29)
[2017-12-03] MEDS: Morphine 4 mg/ml ISec IVP PRN ×3 (04:31→22:31)
[2017-12-03] MEDS ORDERED: Barium Sulfate Susp 2.1% w/v, 2.0% w/w 450 mL Bottle PO ONE (06:39)
--- NOTE | 2017-12-03 07:07 | CP.PCM.PN ---
<Jey Chaney - Last Filed: 12/03/17 07:45> Subjective - Date & Time of Evaluation Date of Evaluation: 12/03/17 Time of Evaluation: 06:50 - Subjective Subjective: PGY4 GI follow-up Pt seen and examined bedside Tolerated clears last night still has pain in the RUQ and LUQ Denies any pain radiating to the back tolerated clears yesterday denies any BM since wednesday ROS: 10 point ROS conducted neg other than above Objective - Vital Signs/Intake and Output Vital Signs (last 24 hours): Temp Pulse Resp BP Pulse Ox 98.2 F 79 16 136/79 96 12/02/17 17:03 12/02/17 17:03 12/02/17 17:03 12/02/17 17:03 12/02/17 17:03 Intake and Output: 12/03/17 12/03/17 06:59 18:59 Intake Total 1140 Balance 1140 - Medications Medications: Current Medications Albuterol/Ipratropium (Duoneb 3 Mg/0.5 Mg (3 Ml) Ud) 3 ml IH QID [facility] Last Admin: 12/02/17 22:51 Dose: Not Given Amlodipine Besylate (Norvasc) 10 mg PO DAILY [facility] Last Admin: 12/02/17 09:48 Dose: 10 mg Atenolol (Tenormin) 50 mg PO DAILY [facility] Last Admin: 12/02/17 09:48 Dose: 50 mg Bisacodyl (Dulcolax) 10 mg RC DAILY [facility] Stop: 12/07/17 10:01 Last Admin: 12/02/17 09:48 Dose: 10 mg Clonidine HCl (Catapres) 0.1 mg PO Q6H PRN PRN Reason: Systolic Blood Pressure Heparin Sodium (Porcine) (Heparin) 5,000 units SC Q12 [facility] PRN Reason: Protocol Last Admin: 12/02/17 21:17 Dose: 5,000 units Sodium Chloride (Sodium Chloride 0.45%) 1,000 mls @ 70 mls/hr IV .[id number] [facility] Last Admin: 12/03/17 02:28 Dose: 70 mls/hr Ceftriaxone Sodium (Rocephin 1 Gram Ivpb) 1 gm in 100 mls @ 100 mls/hr IVPB DAILY [facility] PRN Reason: Protocol Stop: 12/06/17 23:59 Last Admin: 12/02/17 09:49 Dose: 100 mls/hr Morphine Sulfate (Morphine) 4 mg IVP Q4H PRN PRN Reason: Pain, moderate (4-7) Last Admin: 12/03/17 04:31 Dose: 4 mg Ondansetron HCl (Zofran Inj) 4 mg IVP Q6H PRN PRN Reason: Nausea/Vomiting Last Admin: 12/02/17 11:26 Dose: 4 mg Oxycodone/Acetaminophen (Percocet 5/325 Mg Tab) 1 tab PO Q4H PRN PRN Reason: Pain, Mild (1-3) Stop: 12/04/17 18:23 Last Admin: 12/02/17 20:05 Dose: 1 tab Pantoprazole Sodium (Protonix Inj) 40 mg IVP DAILY [facility] Last Admin: 12/02/17 09:48 Dose: 40 mg - Constitutional Appears: Well, No Acute Distress - Head Exam Head Exam: ATRAUMATIC, NORMOCEPHALIC - Eye Exam Eye Exam: Normal appearance - ENT Exam ENT Exam: Mucous Membranes Moist, Normal Exam - Neck Exam Neck Exam: Full ROM, Normal Inspection - Respiratory Exam Respiratory Exam: Clear to Ausculation Bilateral. absent: Rales, Rhonchi, Wheezes, Respiratory Distress - Cardiovascular Exam Cardiovascular Exam: REGULAR RHYTHM, +S1, +S2 - GI/Abdominal Exam GI & Abdominal Exam: Soft, Tenderness (RUQ and LUQ), Normal Bowel Sounds. absent: Guarding, Rigid, Organomegaly - Extremities Exam Extremities Exam: absent: Joint Swelling, Pedal Edema - Neurological Exam Neurological Exam: Alert, Awake, Oriented x3 - Psychiatric Exam Psychiatric exam: Normal Affect, Normal Mood - Skin Skin Exam: Dry, Intact, Normal Color, Warm Assessment and Plan - Assessment and Plan (Free Text) Assessment: Charlene Sood is a 57F w/ hx porcelain gallbadder s/p Lap Kalee complicated by bile leak s/p ERCP demonstrating leak from duct of lushka, sphincterotomy and placement of 7fr x 9cm plastic biliary stent, PD stent POD #1 Bile leak, s/p sphincterotomy and placement of 7fr x 9cm plastic biliary stent, PD stent POD #1 Biloma Hx of Porcelain gallbladder Plan: -keep NPO -consulted IR -will assess if biloma or collection is drainable via IR guided percut drain, if not, may proceed maegan surgical placement of drain -continue abx -pain control as per primary team -rest of care as per surgery and primary team D/W Dr. Shelley <Yunier Shelley - Last Filed: 12/03/17 08:34> Objective - Vital Signs/Intake and Output Vital Signs (last 24 hours): Temp Pulse Resp BP Pulse Ox 98.2 F 79 16 136/79 96 12/02/17 17:03 12/02/17 17:03 12/02/17 17:03 12/02/17 17:03 12/02/17 17:03 Intake and Output: 12/03/17 12/03/17 06:59 18:59 Intake Total 1140 0 Balance 1140 0 - Medications Medications: Current Medications Albuterol/Ipratropium (Duoneb 3 Mg/0.5 Mg (3 Ml) Ud) 3 ml IH QID [facility] Last Admin: 12/02/17 22:51 Dose: Not Given Amlodipine Besylate (Norvasc) 10 mg PO DAILY [facility] Last Admin: 12/02/17 09:48 Dose: 10 mg Atenolol (Tenormin) 50 mg PO DAILY [facility] Last Admin: 12/02/17 09:48 Dose: 50 mg Bisacodyl (Dulcolax) 10 mg RC DAILY [facility] Stop: 12/07/17 10:01 Last Admin: 12/02/17 09:48 Dose: 10 mg Clonidine HCl (Catapres) 0.1 mg PO Q6H PRN PRN Reason: Systolic Blood Pressure Heparin Sodium (Porcine) (Heparin) 5,000 units SC Q12 [facility] PRN Reason: Protocol Last Admin: 12/02/17 21:17 Dose: 5,000 units Sodium Chloride (Sodium Chloride 0.45%) 1,000 mls @ 70 mls/hr IV .[id number] [facility] Last Admin: 12/03/17 02:28 Dose: 70 mls/hr Ceftriaxone Sodium (Rocephin 1 Gram Ivpb) 1 gm in 100 mls @ 100 mls/hr IVPB DAILY [facility] PRN Reason: Protocol Stop: 12/06/17 23:59 Last Admin: 12/02/17 09:49 Dose: 100 mls/hr Morphine Sulfate (Morphine) 4 mg IVP Q4H PRN PRN Reason: Pain, moderate (4-7) Last Admin: 12/03/17 04:31 Dose: 4 mg Ondansetron HCl (Zofran Inj) 4 mg IVP Q6H PRN PRN Reason: Nausea/Vomiting Last Admin: 12/02/17 11:26 Dose: 4 mg Oxycodone/Acetaminophen (Percocet 5/325 Mg Tab) 1 tab PO Q4H PRN PRN Reason: Pain, Mild (1-3) Stop: 12/04/17 18:23 Last Admin: 12/02/17 20:05 Dose: 1 tab Pantoprazole Sodium (Protonix Inj) 40 mg IVP DAILY [facility] Last Admin: 12/02/17 09:48 Dose: 40 mg - Labs Labs: 12/03/17 07:50 12/03/17 07:50 Attending/Attestation - Attestation I have personally seen and examined this patient.: Yes I have fully participated in the care of the patient.: Yes I have reviewed all pertinent clinical information, including history, physical exam and plan: Yes Notes (Text): 12/03/17 08:33 57 year old female with h/o porcelain gallbladder, gallstones s/p lap kalee c/b bile leak now s/p ERCP with demonstration of leak into biloma in the RUQ from the duct of lushka with placement of plastic biliary stent. Recommend IR evaluation for percutaneous drain placement. Continue antibiotics.
[2017-12-03 08:13] LABS: BASO # 0.02 K/mm3 (0.0-2.0); BASO % 0.4 % (0.0-3.0); EOS # 0.3 (0.0-0.7); EOS % 5.7 % (1.5-5.0); GRAN # 2.92 (1.4-6.5); GRAN % 54.1 % (50.0-68.0); HEMOGLOBIN 9.8 g/dL (12.0-16.0); LYMPH # 1.7 (1.2-3.4); LYMPH % 32.2 % (22.0-35.0); MEAN CELL VOLUME 89.8 fl (80.0-105.0); MEAN CORPUSCULAR HEMOGLOBIN 28.5 pg (25.0-35.0); MEAN CORPUSCULAR HGB CONC 31.7 g/dl (31.0-37.0); MEAN PLATELET VOLUME 9.3 fl (7.0-11.0); MONO # 0.4 (0.1-0.6); MONO % 7.6 % (1.0-6.0); RBC 3.44 10^6/uL (3.5-6.1); RED CELL DISTRIBUTION WIDTH 13.2 % (11.5-14.5); WHITE BLOOD COUNT 5.4 10^3/ul (4.5-11.0)
[2017-12-03 08:18] LABS: ALB/GLOB RATIO 0.9 (1.1-1.8); ALBUMIN 2.8 g/dL (3.0-4.8); ALT/SGPT 131 U/L (7-56); AST/SGOT 76 U/L (14-36); BLOOD UREA NITROGEN 11 mg/dL (7-21); CALCIUM 8.6 mg/dL (8.4-10.5); GFR AFRICAN-AMERICAN > 60; GFR NON-AFRICAN AMERICAN > 60
[2017-12-03] MEDS: cefTRIAXone 1 gm 1 GM/100 ML BAG IVPB SCH (09:10)
--- NOTE | 2017-12-03 09:22 | RAD ---
PROCEDURE: ERCP HISTORY: ? CBD OBST COMPARISON: TECHNIQUE: Fluoroscopy was provided in the endoscopy suite. 61 seconds of fluoro time were used. Six images were submitted FINDINGS: The study confirms a biliary leak. Contrast accumulates in the gallbladder fossa. A common duct stent was placed. IMPRESSION: As above
[2017-12-03] MEDS: Albuterol-Ipratrop 3 mg / 0.5 (3 ml) UD IH SCH ×3 (09:59→19:51)
--- NOTE | 2017-12-03 10:36 | PN ---
DATE: The patient is seen on the day of admission and yesterday, I spoke to Dr. Shelley and Dr. Junior. I am being asked to follow this patient. The patient is known to be a 57-year-old who on Wednesday last week, a week from today, had a laparoscopic cholecystectomy for a calcified gallbladder. The operation note I have not seen, but it was described as difficult, treated with Surgicel x2. The patient had a sudden onset of abdominal pain in the postoperative period and is admitted. CAT scan showed what is read as an abscess in the bed. The white count on admission was 9.4. Hemoglobin stable at 13 and now 11.8. Liver functions showed elevation of liver functions of AST and ALT, bilirubin and alkaline phosphatase normal where they remain. HIDA scan was done. The HIDA scan clearly shows a leak. A stent was placed by Dr. Shelley, showing leak from the liver bed, right hepatic area. A stent was placed. My feeling is that the collection in the right upper quadrant is ongoing and Sal Gilmore placed the drain. The Surgicel is a question, whether or not they will drain or not; if not, this might have to be done laparoscopically. The CAT scan is being repeated today . PHYSICAL EXAMINATION: The patient is healthy, somewhat obese female in moderate distress, is afebrile. I will follow with the patient at the patient's request. Quinten Dolan MD
--- NOTE | 2017-12-03 10:50 | CP.PCM.PN ---
Subjective - Date & Time of Evaluation Date of Evaluation: 12/03/17 Time of Evaluation: 10:48 - Subjective Subjective: Surgery: Dr. Dolan Pt seen and examined. Resting comfortably in bed. Pain controlled. Tolerating CLD. No complaints Objective - Vital Signs/Intake and Output Vital Signs (last 24 hours): Temp Pulse Resp BP Pulse Ox 99.2 F 87 20 106/65 95 12/03/17 08:41 12/03/17 08:41 12/03/17 08:41 12/03/17 08:41 12/03/17 08:41 Intake and Output: 12/03/17 12/03/17 06:59 18:59 Intake Total 1140 0 Balance 1140 0 - Medications Medications: Current Medications Albuterol/Ipratropium (Duoneb 3 Mg/0.5 Mg (3 Ml) Ud) 3 ml IH QID [facility] Last Admin: 12/03/17 09:59 Dose: Not Given Amlodipine Besylate (Norvasc) 10 mg PO DAILY [facility] Last Admin: 12/02/17 09:48 Dose: 10 mg Atenolol (Tenormin) 50 mg PO DAILY [facility] Last Admin: 12/02/17 09:48 Dose: 50 mg Bisacodyl (Dulcolax) 10 mg RC DAILY [facility] Stop: 12/07/17 10:01 Last Admin: 12/02/17 09:48 Dose: 10 mg Clonidine HCl (Catapres) 0.1 mg PO Q6H PRN PRN Reason: Systolic Blood Pressure Heparin Sodium (Porcine) (Heparin) 5,000 units SC Q12 [facility] PRN Reason: Protocol Last Admin: 12/03/17 09:00 Dose: 5,000 units Sodium Chloride (Sodium Chloride 0.45%) 1,000 mls @ 70 mls/hr IV .[id number] [facility] Last Admin: 12/03/17 10:29 Dose: 70 mls/hr Piperacillin Sod/Tazobactam Sod (Zosyn 3.375 In Ns 100ml) 100 mls @ 200 mls/hr IVPB Q6 [facility] PRN Reason: Protocol Stop: 12/10/17 09:22 Morphine Sulfate (Morphine) 4 mg IVP Q4H PRN PRN Reason: Pain, moderate (4-7) Last Admin: 12/03/17 04:31 Dose: 4 mg Ondansetron HCl (Zofran Inj) 4 mg IVP Q6H PRN PRN Reason: Nausea/Vomiting Last Admin: 12/03/17 09:09 Dose: 4 mg Oxycodone/Acetaminophen (Percocet 5/325 Mg Tab) 1 tab PO Q4H PRN PRN Reason: Pain, Mild (1-3) Stop: 12/04/17 18:23 Last Admin: 12/02/17 20:05 Dose: 1 tab Pantoprazole Sodium (Protonix Inj) 40 mg IVP DAILY [facility] Last Admin: 12/03/17 09:08 Dose: 40 mg - Labs Labs: 12/03/17 07:50 12/03/17 07:50 - Constitutional Appears: Non-toxic, No Acute Distress - Head Exam Head Exam: ATRAUMATIC, NORMOCEPHALIC - Eye Exam Eye Exam: EOMI - ENT Exam ENT Exam: Mucous Membranes Moist - Neck Exam Neck Exam: Full ROM - Respiratory Exam Respiratory Exam: NORMAL BREATHING PATTERN. absent: Accessory Muscle Use, Respiratory Distress - GI/Abdominal Exam GI & Abdominal Exam: Soft. absent: Distended, Firm, Guarding, Rigid, Tenderness , Rebound - Extremities Exam Extremities Exam: absent: Calf Tenderness, Pedal Edema - Neurological Exam Neurological Exam: Alert, Awake, Oriented x3 - Psychiatric Exam Psychiatric exam: Normal Affect, Normal Mood - Skin Skin Exam: Normal Color, Warm Assessment and Plan - Assessment and Plan (Free Text) Assessment: 57F s/p lap earl w. bile leak -s/p ERCP w. stent placement -will need IR drainage -continue to trend LFTs -will d/w attending Moises PGY3
[2017-12-03] MEDS: Piperacillin/Tazobact 3.375 gm 100 ML IVPB SCH ×4 (10:57→23:57)
--- NOTE | 2017-12-03 11:16 | CT ---
PROCEDURE: CT Abdomen and Pelvis without intravenous contrast HISTORY: lap earl with bile leak. FU biloma COMPARISON: CT 11/30/2017 TECHNIQUE: Without contrast. Contrast Dose: Radiation dose: Total exam DLP = 1080 mGy-cm. This CT exam was performed using one or more of the following dose reduction techniques: Automated exposure control, adjustment of the mA and/or kV according to patient size, and/or use of iterative reconstruction technique. FINDINGS: LOWER THORAX: Bibasilar atelectasis LIVER: There is a small amount of subdiaphragmatic fluid. This has slightly increased. The subhepatic fluid collections adjacent to the left lobe of the liver have decreased in size. There is no significant change in the fluid in the gallbladder fossa. A biliary stent is now seen in the common duct. The surgical clips are seen 2.5 cm lateral to the common duct. There is a decrease in the fluid surrounding the spleen. There is a small amount of fluid in the left pericolic gutter and in the pelvis. The pelvic fluid has increased. GALLBLADDER AND BILE DUCTS: As above PANCREAS: Unremarkable. No gross lesion or ductal dilatation. SPLEEN: Unremarkable. ADRENALS: Unremarkable. No mass. KIDNEYS AND URETERS: Unremarkable. No hydronephrosis. No solid mass. VASCULATURE: Unremarkable. No aortic aneurysm. BOWEL: Unremarkable. No obstruction. No gross mural thickening. APPENDIX: Unremarkable. Normal appendix. PERITONEUM: Unremarkable. No free fluid. No free air. LYMPH NODES: Unremarkable. No enlarged lymph nodes. BLADDER: Unremarkable. REPRODUCTIVE: Unremarkable. BONES: No acute fracture. OTHER FINDINGS: None. IMPRESSION: Overall stable appearance of fluid collections related to bile leak. See comments
[2017-12-03] MEDS ORDERED: Midazolam 2 MG/2 ML VIAL ONE (12:17)
[2017-12-03] MEDS ORDERED: Lidocaine 1% Inj (20ml) ONE (12:18)
--- NOTE | 2017-12-03 13:42 | PN ---
DATE: 12/03/2017 CARDIOLOGY FOLLOWUP SUBJECTIVE: The patient's abdominal pain is better. PHYSICAL EXAMINATION: VITAL SIGNS: Stable. NECK: Negative JVD. LUNGS: Without rales. HEART: S1, S2. EXTREMITIES: Without edema. LABORATORY DATA: Hemoglobin is 9.8. Chemistries: BUN and creatinine unremarkable. LFTs are elevated. IMPRESSION: 1. Status post laparoscopic cholecystectomy a week ago. 2. Hypertension. 3. Borderline diabetes mellitus. 4. Abdominal pain, improved. Given these findings, the patient's cardiac status is stable at this time. Sal Gallo MD
--- NOTE | 2017-12-03 14:28 | PN ---
DATE: 12/02/2017 SUBJECTIVE: Patient still complains of intermittent abdominal pain. When the pain medicine wears off, she starts feeling pain It is severe pain. It is in the whole upper abdomen. Patient was seen in endoscopy waiting area, prepared for ERCP stent placement proceeded to drain the belly woven due to biliary leak. Case discussed with the patient in detail and was next to the patient on the bedside. Patient understands the procedures very well. There is no respiratory distress. PHYSICAL EXAMINATION: VITAL SIGNS: As follows: Temperature 98.2, heart rate 82, blood pressure 149/83, respirations 16, saturation 95% on 3 liters. HEAD AND NECK: Normal. No JVD. No thyromegaly. CHEST: Clear. Good air entry. CARDIAC: First sound and second sound normal. ABDOMEN: Soft. There is tenderness in the upper abdomen and there is the scar from recent laparoscopic cholecystectomy. Abdomen is tender in the upper abdomen. Bowel sounds intact. EXTREMITIES: No edema. No calf tenderness. NEUROLOGICAL: Normal. LABORATORY DATA: Shows white count is normal 7.7, hemoglobin 11.8, hematocrit 256. Chemistry: Sodium is 138, potassium 3.8, chloride 100, bicarb 26, BUN 11, creatinine 0.6. Liver enzyme seems a little bit elevated for ALT 134, AST 90. It is a minimal elevation compared with the previous one. Alkaline phosphatase is 115 and bilirubin is 1. Patient also has procalcitonin, which is negative. IMPRESSION AND PLAN: 1. Stat abdominal pain, status post laparoscopic cholecystectomy complicated with biliary leak, probably one of the small duct injuries. Plan is to do an endoscopic retrograde cholangiopancreatography stent placement in the will be placed endoscopically by Dr. Faye. Discussed in detail with Dr. Faye. 2. Abdominal pain due to biliary leak, biloma. Discussed with Dr. Sal Gilmore. He looked at the CAT scan. Plan, repeat CT in the morning and we will decide whether put a drainage is on the amount of bile accumulated. Case discussed with the daughter, Talia about her mom's condition. 3. Hypertension, stable. 4. Anemia, probably part of it dilutional from the IV fluid. We will monitor that. 5. Morbid obesity, history of asthma. We will continue nebulizer treatment. Continue gastrointestinal and deep venous thrombosis prophylaxis. Patient has sequential compression device on and heparin 5000 q.12 for deep venous thrombosis prophylaxis. Continue current therapy. Follow up clinically. Sam Nieto MD
--- NOTE | 2017-12-03 15:37 | US ---
HISTORY: Leg pain and swelling. Evaluate for DVT PHYSICIAN(S): Sal Gilmore MD. TECHNIQUE: Duplex sonography and color-flow Doppler with graded compression were used to evaluate the deep venous systems of both lower extremities. FINDINGS: The visualized deep venous systems of both lower extremities are sonographically normal and compressible. Normal wave forms and augmentation are seen. There is no sonographic evidence for deep venous thrombosis in the visualized segments of both lower extremities. IMPRESSION: No sonographic evidence for deep venous thrombosis in the visualized segments of both lower extremities.
--- NOTE | 2017-12-03 15:42 | CT ---
PROCEDURE: CT-guided right upper quadrant abscess drainage HISTORY: Recent cholecystectomy with bile leak. Needs right upper quadrant biloma drainage PHYSICIAN(S): Sal Gilmore MD. TECHNIQUE: The relative risks and indications for the procedure were explained to the patient and informed consent obtained. The patient was placed in a supine position on the CT scanner and preliminary images through the upper abdomen performed. This revealed a 7 cm air and fluid collection in the gallbladder fossa. A right anterior oblique approach was selected and the area prepped/draped in the usual sterile fashion. Conscious sedation and monitoring were provided throughout the procedure by nurse. An 18-gauge needle was advanced into the collection and 10 cc of bilious fluid aspirated. A specimen was sent to microbiology. A 0.035 J-wire was coiled within the fluid collection. Sequential dilatation was performed with subsequent placement of a 12 English pigtail drain. Approximately 60 cc of bilious fluid was aspirated. The cavity was lavaged with normal saline. The drain was sutured to the skin and placed to gravity drainage. Completion images were performed. The patient tolerated the procedure well. IMPRESSION: 1. CT-guided right upper quadrant abscess drainage as described above
[2017-12-03 16:45] VITALS: RESP 20
--- NOTE | 2017-12-03 17:27 | CARD ---
APPROVED REPORT EXAM: Two-dimensional and M-mode echocardiogram with Doppler and color Doppler. 2D DIMENSIONS Left Atrium (2D)4.3 (1.6-4.0cm)IVSd0.8 (0.7-1.1cm) LVDd4.9 (3.9-5.9cm)PWd0.9 (0.7-1.1cm) LVDs3.1 (2.5-4.0cm)FS (%) 35.8 % LVEF (%)65.1 (>50%) M-Mode DIMENSIONS Aortic Root3.10 (2.2-3.7cm)Aortic Cusp Exc.1.80 (1.5-2.0cm) Aortic Valve AoV Peak Zbqrsekx214.0cm/Sulaiman Peak GR.12mmHgLVOT Peak Bbrcwtcd555.0cm/s LVOT VTI30.40cm Mitral Valve MV E Vbhhpjwf303.0cm/sMV A Vfcgcoyj181.0cm/sE/A ratio0.9 TDI Lateral E' Peak V12.70cm/sMedial E' Peak V8.97cm/sE/Lateral E'8.4 E/Medial E'11.9 Pulmonary Valve PV Peak Dtjjfrnx51.8cm/sPV Peak Grad.3mmHg Tricuspid Valve TR Peak Mffibkkt736cd/sRAP CFJMACKA70iqCiJK Peak Gr.35mmHg [id number] LEFT VENTRICLE The left ventricle is normal size. There is normal left ventricular wall thickness. The left ventricular function is normal. The left ventricular ejection fraction is within the normal range. There is normal LV segmental wall motion. Transmitral Doppler flow pattern is Grade I-abnormal relaxation pattern. RIGHT VENTRICLE The right ventricle is normal size. There is normal right ventricular wall thickness. The right ventricular systolic function is normal. ATRIA The left atrium is mildly dilated. The right atrium is mildly dilated. AORTIC VALVE The aortic valve is normal in structure. No aortic regurgitation is present. There is no aortic valvular stenosis. MITRAL VALVE The mitral valve is normal in structure. Mitral regurgitation is mild. TRICUSPID VALVE There is mild tricuspid regurgitation. There is mild to moderate pulmonary hypertension. GREAT VESSELS The aortic root is normal in size. The IVC is normal in size and collapses >50% with inspiration. PERICARDIAL EFFUSION There is no pericardial effusion. <Conclusion> The left ventricle is normal size. There is normal left ventricular wall thickness. The left ventricular function is normal. The left ventricular ejection fraction is within the normal range. There is normal LV segmental wall motion. Transmitral Doppler flow pattern is Grade I-abnormal relaxation pattern. Mitral regurgitation is mild. There is mild tricuspid regurgitation. There is mild to moderate pulmonary hypertension.
--- NOTE | 2017-12-03 19:46 | CP.PCM.PN ---
Subjective - Date & Time of Evaluation Date of Evaluation: 12/03/17 Time of Evaluation: 10:25 - Subjective Subjective: For drainage of fluid collection, less abdominal pain, no fevers. Objective - Vital Signs/Intake and Output Vital Signs (last 24 hours): Temp Pulse Resp BP Pulse Ox 98.4 F 88 22 155/88 H 92 L 12/02/17 08:33 12/02/17 08:33 12/02/17 08:33 12/02/17 09:48 12/01/17 16:00 - Medications Medications: Current Medications Albuterol/Ipratropium (Duoneb 3 Mg/0.5 Mg (3 Ml) Ud) 3 ml IH QID [facility] Last Admin: 12/02/17 07:25 Dose: 3 ml Amlodipine Besylate (Norvasc) 10 mg PO DAILY [facility] Last Admin: 12/02/17 09:48 Dose: 10 mg Atenolol (Tenormin) 50 mg PO DAILY [facility] Last Admin: 12/02/17 09:48 Dose: 50 mg Bisacodyl (Dulcolax) 10 mg RC DAILY [facility] Stop: 12/07/17 10:01 Last Admin: 12/02/17 09:48 Dose: 10 mg Clonidine HCl (Catapres) 0.1 mg PO Q6H PRN PRN Reason: Systolic Blood Pressure Heparin Sodium (Porcine) (Heparin) 5,000 units SC Q12 [facility] PRN Reason: Protocol Last Admin: 12/02/17 09:47 Dose: 5,000 units Sodium Chloride (Sodium Chloride 0.45%) 1,000 mls @ 70 mls/hr IV .[id number] [facility] Last Admin: 12/02/17 09:49 Dose: 70 mls/hr Ceftriaxone Sodium (Rocephin 1 Gram Ivpb) 1 gm in 100 mls @ 100 mls/hr IVPB DAILY [facility] PRN Reason: Protocol Stop: 12/06/17 23:59 Last Admin: 12/02/17 09:49 Dose: 100 mls/hr Morphine Sulfate (Morphine) 4 mg IVP Q4H PRN PRN Reason: Pain, moderate (4-7) Last Admin: 12/02/17 03:40 Dose: 4 mg Ondansetron HCl (Zofran Inj) 4 mg IVP Q6H PRN PRN Reason: Nausea/Vomiting Last Admin: 12/02/17 03:18 Dose: 4 mg Oxycodone/Acetaminophen (Percocet 5/325 Mg Tab) 1 tab PO Q4H PRN PRN Reason: Pain, Mild (1-3) Stop: 12/04/17 18:23 Last Admin: 12/02/17 06:39 Dose: 1 tab Pantoprazole Sodium (Protonix Inj) 40 mg IVP DAILY [facility] Last Admin: 12/02/17 09:48 Dose: 40 mg Tramadol HCl (Ultram) 50 mg PO TID [facility] Last Admin: 12/02/17 09:48 Dose: 50 mg - Constitutional Appears: Non-toxic, Chronically Ill - Head Exam Head Exam: NORMAL INSPECTION - ENT Exam ENT Exam: Mucous Membranes Moist - Neck Exam Neck Exam: absent: Meningismus - Respiratory Exam Respiratory Exam: Decreased Breath Sounds - Cardiovascular Exam Cardiovascular Exam: +S1, +S2 - GI/Abdominal Exam GI & Abdominal Exam: Soft. absent: Tenderness Assessment and Plan - Assessment and Plan (Free Text) Plan: Assessment Consider right upper quadarant area intra-abdominal fluid collection from biliary leak R/O abscess S/P laparoscopic cholecystectomy HTN Plan continue Zosyn day 3; blood cx are negative; follow up plan for drainage of the fluid collection, cultures of the fluid collection will continue to monitor clinically
[2017-12-04] MEDS: Morphine 4 mg/ml ISec IVP PRN (04:42)
[2017-12-04] MEDS: Piperacillin/Tazobact 3.375 gm 100 ML IVPB SCH (06:08)
[2017-12-04] MEDS ORDERED: Pantoprazole 40 mg EC Tab PO SCH (07:30)
--- NOTE | 2017-12-04 07:50 | CP.PCM.PN ---
<Jey Chaney - Last Filed: 12/04/17 09:59> Subjective - Date & Time of Evaluation Date of Evaluation: 12/04/17 Time of Evaluation: 07:00 - Subjective Subjective: PGY4 GI Follow Up Pt still has abd pain but improved s/p drain placment +BM, + Void No other complaints ROS: 10 point ROS conducted, neg other than above Objective - Vital Signs/Intake and Output Vital Signs (last 24 hours): Temp Pulse Resp BP Pulse Ox 98.3 F 83 20 97/57 L 93 L 12/03/17 16:00 12/03/17 16:00 12/03/17 16:00 12/03/17 16:00 12/03/17 16:00 Intake and Output: 12/04/17 12/04/17 06:59 18:59 Intake Total 480 0 Balance 480 0 - Medications Medications: Current Medications Acetaminophen (Tylenol 325mg Tab) 650 mg PO Q4 PRN PRN Reason: Pain, Mild (1-3) Albuterol/Ipratropium (Duoneb 3 Mg/0.5 Mg (3 Ml) Ud) 3 ml IH QID [facility] Last Admin: 12/03/17 19:51 Dose: 3 ml Amlodipine Besylate (Norvasc) 10 mg PO DAILY [facility] Last Admin: 12/03/17 10:49 Dose: 10 mg Atenolol (Tenormin) 50 mg PO DAILY [facility] Last Admin: 12/03/17 10:50 Dose: 50 mg Bisacodyl (Dulcolax) 10 mg RC DAILY [facility] Stop: 12/07/17 10:01 Last Admin: 12/03/17 10:54 Dose: Not Given Clonidine HCl (Catapres) 0.1 mg PO Q6H PRN PRN Reason: Systolic Blood Pressure Heparin Sodium (Porcine) (Heparin) 5,000 units SC Q12 [facility] PRN Reason: Protocol Last Admin: 12/03/17 09:00 Dose: 5,000 units Sodium Chloride (Sodium Chloride 0.45%) 1,000 mls @ 70 mls/hr IV .[id number] [facility] Last Admin: 12/03/17 10:29 Dose: 70 mls/hr Piperacillin Sod/Tazobactam Sod (Zosyn 3.375 In Ns 100ml) 100 mls @ 200 mls/hr IVPB Q6 [facility] PRN Reason: Protocol Stop: 12/10/17 09:22 Last Admin: 12/04/17 06:08 Dose: 200 mls/hr Morphine Sulfate (Morphine) 4 mg IVP Q4H PRN PRN Reason: Pain, moderate (4-7) Last Admin: 12/04/17 04:42 Dose: 4 mg Ondansetron HCl (Zofran Inj) 4 mg IVP Q6H PRN PRN Reason: Nausea/Vomiting Last Admin: 12/04/17 04:51 Dose: 4 mg Oxycodone/Acetaminophen (Percocet 5/325 Mg Tab) 1 tab PO Q4H PRN PRN Reason: Pain, Mild (1-3) Stop: 12/04/17 18:23 Last Admin: 12/02/17 20:05 Dose: 1 tab Pantoprazole Sodium (Protonix Ec Tab) 40 mg PO ACB [facility] - Labs Labs: 12/03/17 07:50 12/03/17 07:50 - Constitutional Appears: Well, No Acute Distress - Head Exam Head Exam: ATRAUMATIC, NORMOCEPHALIC - Eye Exam Eye Exam: Normal appearance - ENT Exam ENT Exam: Mucous Membranes Moist, Normal Exam - Neck Exam Neck Exam: Normal Inspection - Respiratory Exam Respiratory Exam: Clear to Ausculation Bilateral, NORMAL BREATHING PATTERN. absent: Rales, Rhonchi, Wheezes, Respiratory Distress - Cardiovascular Exam Cardiovascular Exam: REGULAR RHYTHM, +S1, +S2 - GI/Abdominal Exam GI & Abdominal Exam: Soft, Tenderness, Normal Bowel Sounds. absent: Firm, Guarding, Rigid Additional comments: LUQ Insertion of IR guide draing in the LUQ - Extremities Exam Extremities Exam: absent: Joint Swelling, Pedal Edema - Neurological Exam Neurological Exam: Alert, Awake, Oriented x3 - Psychiatric Exam Psychiatric exam: Normal Affect, Normal Mood - Skin Skin Exam: Dry, Intact, Normal Color, Warm Assessment and Plan - Assessment and Plan (Free Text) Assessment: Charlene Sood is a 57F w/ hx porcelain gallbadder s/p Lap Kalee complicated by bile leak s/p ERCP demonstrating leak from duct of lushka, sphincterotomy and placement of 7fr x 9cm plastic biliary stent, PD stent POD #2 Bile leak, s/p sphincterotomy and placement of 7fr x 9cm plastic biliary stent, PD stent POD #2 Biloma Hx of Porcelain gallbladder Plan: -drain in place -pain management as per primary team -follow-up with Dr. Gilmore for drain eval -follow with Dr. Shelley as an outpt. office info in discharge documentation -will need stent removal in 2months D/W Dr. Shelley <Yunier Shelley - Last Filed: 12/04/17 11:43> Objective - Vital Signs/Intake and Output Vital Signs (last 24 hours): Temp Pulse Resp BP Pulse Ox 98.6 F 83 20 110/68 98 12/04/17 06:00 12/04/17 10:43 12/04/17 06:00 12/04/17 10:45 12/04/17 06:00 Intake and Output: 12/04/17 12/04/17 06:59 18:59 Intake Total 480 0 Balance 480 0 - Medications Medications: Current Medications Acetaminophen (Tylenol 325mg Tab) 650 mg PO Q4 PRN PRN Reason: Pain, Mild (1-3) Albuterol/Ipratropium (Duoneb 3 Mg/0.5 Mg (3 Ml) Ud) 3 ml IH QID [facility] Last Admin: 12/04/17 07:55 Dose: 3 ml Amlodipine Besylate (Norvasc) 10 mg PO DAILY [facility] Last Admin: 12/04/17 10:45 Dose: 10 mg Atenolol (Tenormin) 50 mg PO DAILY [facility] Last Admin: 12/04/17 10:43 Dose: 50 mg Bisacodyl (Dulcolax) 10 mg RC DAILY [facility] Stop: 12/07/17 10:01 Last Admin: 12/04/17 10:46 Dose: Not Given Clonidine HCl (Catapres) 0.1 mg PO Q6H PRN PRN Reason: Systolic Blood Pressure Heparin Sodium (Porcine) (Heparin) 5,000 units SC Q12 [facility] PRN Reason: Protocol Last Admin: 12/03/17 09:00 Dose: 5,000 units Morphine Sulfate (Morphine) 2 mg IVP Q4H PRN PRN Reason: Pain, severe (8-10) Ondansetron HCl (Zofran Inj) 4 mg IVP Q6H PRN PRN Reason: Nausea/Vomiting Last Admin: 12/04/17 04:51 Dose: 4 mg Oxycodone/Acetaminophen (Percocet 5/325 Mg Tab) 1 tab PO Q4H PRN PRN Reason: Pain, Mild (1-3) Stop: 12/04/17 18:23 Last Admin: 12/02/17 20:05 Dose: 1 tab Pantoprazole Sodium (Protonix Ec Tab) 40 mg PO ACB [facility] Last Admin: 12/04/17 08:44 Dose: 40 mg - Labs Labs: 12/04/17 07:30 12/04/17 07:30 Attending/Attestation - Attestation I have personally seen and examined this patient.: Yes I have fully participated in the care of the patient.: Yes I have reviewed all pertinent clinical information, including history, physical exam and plan: Yes Notes (Text): 12/04/17 11:42 57 year old female with h/o porcelain gallbladder, gallstones s/p lap kalee c/b bile leak now s/p ERCP with demonstration of leak into biloma in the RUQ from the duct of lushka with placement of plastic biliary stent. S/p IR drain placement with bilious drainage. Advance diet as tolerated. Pain control as needed. Continue abx for 5-7 days. Recommend outpatient follow up with me in 2 weeks. Repeat ERCP in 6 weeks. Drain removal in 1-2 weeks when bilious output stops
--- NOTE | 2017-12-04 07:52 | CP.PCM.PN ---
Subjective - Date & Time of Evaluation Date of Evaluation: 12/04/17 Time of Evaluation: 07:48 - Subjective Subjective: Surgery: Dr. Dolan Pt seen and examined. Resting comfortably in bed. Mild discomfort at IR drain site. Occassional nausea, no vomiting. Objective - Vital Signs/Intake and Output Vital Signs (last 24 hours): Temp Pulse Resp BP Pulse Ox 98.3 F 83 20 97/57 L 93 L 12/03/17 16:00 12/03/17 16:00 12/03/17 16:00 12/03/17 16:00 12/03/17 16:00 Intake and Output: 12/04/17 12/04/17 06:59 18:59 Intake Total 480 0 Balance 480 0 - Medications Medications: Current Medications Acetaminophen (Tylenol 325mg Tab) 650 mg PO Q4 PRN PRN Reason: Pain, Mild (1-3) Albuterol/Ipratropium (Duoneb 3 Mg/0.5 Mg (3 Ml) Ud) 3 ml IH QID [facility] Last Admin: 12/03/17 19:51 Dose: 3 ml Amlodipine Besylate (Norvasc) 10 mg PO DAILY [facility] Last Admin: 12/03/17 10:49 Dose: 10 mg Atenolol (Tenormin) 50 mg PO DAILY [facility] Last Admin: 12/03/17 10:50 Dose: 50 mg Bisacodyl (Dulcolax) 10 mg RC DAILY [facility] Stop: 12/07/17 10:01 Last Admin: 12/03/17 10:54 Dose: Not Given Clonidine HCl (Catapres) 0.1 mg PO Q6H PRN PRN Reason: Systolic Blood Pressure Heparin Sodium (Porcine) (Heparin) 5,000 units SC Q12 [facility] PRN Reason: Protocol Last Admin: 12/03/17 09:00 Dose: 5,000 units Sodium Chloride (Sodium Chloride 0.45%) 1,000 mls @ 70 mls/hr IV .[id number] [facility] Last Admin: 12/03/17 10:29 Dose: 70 mls/hr Piperacillin Sod/Tazobactam Sod (Zosyn 3.375 In Ns 100ml) 100 mls @ 200 mls/hr IVPB Q6 [facility] PRN Reason: Protocol Stop: 12/10/17 09:22 Last Admin: 12/04/17 06:08 Dose: 200 mls/hr Morphine Sulfate (Morphine) 4 mg IVP Q4H PRN PRN Reason: Pain, moderate (4-7) Last Admin: 12/04/17 04:42 Dose: 4 mg Ondansetron HCl (Zofran Inj) 4 mg IVP Q6H PRN PRN Reason: Nausea/Vomiting Last Admin: 12/04/17 04:51 Dose: 4 mg Oxycodone/Acetaminophen (Percocet 5/325 Mg Tab) 1 tab PO Q4H PRN PRN Reason: Pain, Mild (1-3) Stop: 12/04/17 18:23 Last Admin: 12/02/17 20:05 Dose: 1 tab Pantoprazole Sodium (Protonix Ec Tab) 40 mg PO ACB [facility] - Labs Labs: 12/03/17 07:50 12/03/17 07:50 - Constitutional Appears: Non-toxic, No Acute Distress - Head Exam Head Exam: ATRAUMATIC, NORMOCEPHALIC - Eye Exam Eye Exam: EOMI - ENT Exam ENT Exam: Mucous Membranes Moist - Neck Exam Neck Exam: Full ROM - Respiratory Exam Respiratory Exam: NORMAL BREATHING PATTERN. absent: Accessory Muscle Use, Respiratory Distress - GI/Abdominal Exam GI & Abdominal Exam: Soft, Tenderness (RUQ). absent: Distended, Firm, Guarding , Rigid, Rebound Additional comments: IR drain in place - Extremities Exam Extremities Exam: absent: Calf Tenderness, Pedal Edema - Neurological Exam Neurological Exam: Alert, Awake, Oriented x3 - Psychiatric Exam Psychiatric exam: Normal Affect, Normal Mood Assessment and Plan - Assessment and Plan (Free Text) Assessment: 57F s/p lap earl complicated by bile leak, s/p ERCP w. stent placement and IR drainage -IR drain 85cc/12hr bilious -Trend LFTs -encourage OOB and ambulation -will continue to follow, no plans for surgical intervention -d/w attending Moises PGY3
[2017-12-04] MEDS: Albuterol-Ipratrop 3 mg / 0.5 (3 ml) UD IH SCH ×5 (07:55→16:25)
[2017-12-04 08:21] LABS: BASO # 0.02 K/mm3 (0.0-2.0); BASO % 0.5 % (0.0-3.0); EOS # 0.3 (0.0-0.7); EOS % 7.9 % (1.5-5.0); GRAN # 1.96 (1.4-6.5); GRAN % 50.3 % (50.0-68.0); HEMOGLOBIN 9.9 g/dL (12.0-16.0); LYMPH # 1.4 (1.2-3.4); LYMPH % 34.9 % (22.0-35.0); MEAN CELL VOLUME 90.6 fl (80.0-105.0); MEAN CORPUSCULAR HEMOGLOBIN 28.9 pg (25.0-35.0); MEAN CORPUSCULAR HGB CONC 31.9 g/dl (31.0-37.0); MEAN PLATELET VOLUME 9.4 fl (7.0-11.0); MONO # 0.3 (0.1-0.6); MONO % 6.4 % (1.0-6.0); RBC 3.42 10^6/uL (3.5-6.1); RED CELL DISTRIBUTION WIDTH 13.5 % (11.5-14.5); WHITE BLOOD COUNT 3.9 10^3/ul (4.5-11.0)
[2017-12-04 08:25] LABS: ALB/GLOB RATIO 0.9 (1.1-1.8); ALBUMIN 2.8 g/dL (3.0-4.8); ALT/SGPT 84 U/L (7-56); AST/SGOT 33 U/L (14-36); BLOOD UREA NITROGEN 8 mg/dL (7-21); GFR AFRICAN-AMERICAN > 60; GFR NON-AFRICAN AMERICAN > 60
[2017-12-04] MEDS ORDERED: Morphine 2 mg/ml ISec IVP PRN (10:02)
[2017-12-04] MEDS: Oxycodone/Acetaminophen 5/325 mg Tab PO PRN (14:52)
[2017-12-04 16:12] VITALS: BP 129/91; PULSE 75; TEMP 97.9; O2SAT 95
--- NOTE | 2017-12-04 17:15 | CP.PCM.PN ---
Subjective - Date & Time of Evaluation Date of Evaluation: 12/04/17 Time of Evaluation: 11:40 - Subjective Subjective: Comfortable, no fevers, not in distress, improved abdominal pain. Objective - Vital Signs/Intake and Output Vital Signs (last 24 hours): Temp Pulse Resp BP Pulse Ox 98.3 F 83 20 97/57 L 93 L 12/03/17 16:00 12/03/17 16:00 12/03/17 16:00 12/03/17 16:00 12/03/17 16:00 Intake and Output: 12/03/17 12/04/17 18:59 06:59 Intake Total 360 Balance 360 - Medications Medications: Current Medications Acetaminophen (Tylenol 325mg Tab) 650 mg PO Q4 PRN PRN Reason: Pain, Mild (1-3) Albuterol/Ipratropium (Duoneb 3 Mg/0.5 Mg (3 Ml) Ud) 3 ml IH QID [facility] Last Admin: 12/03/17 13:17 Dose: Not Given Amlodipine Besylate (Norvasc) 10 mg PO DAILY [facility] Last Admin: 12/03/17 10:49 Dose: 10 mg Atenolol (Tenormin) 50 mg PO DAILY [facility] Last Admin: 12/03/17 10:50 Dose: 50 mg Bisacodyl (Dulcolax) 10 mg RC DAILY [facility] Stop: 12/07/17 10:01 Last Admin: 12/03/17 10:54 Dose: Not Given Clonidine HCl (Catapres) 0.1 mg PO Q6H PRN PRN Reason: Systolic Blood Pressure Heparin Sodium (Porcine) (Heparin) 5,000 units SC Q12 [facility] PRN Reason: Protocol Last Admin: 12/03/17 09:00 Dose: 5,000 units Sodium Chloride (Sodium Chloride 0.45%) 1,000 mls @ 70 mls/hr IV .[id number] [facility] Last Admin: 12/03/17 10:29 Dose: 70 mls/hr Piperacillin Sod/Tazobactam Sod (Zosyn 3.375 In Ns 100ml) 100 mls @ 200 mls/hr IVPB Q6 [facility] PRN Reason: Protocol Stop: 12/10/17 09:22 Last Admin: 12/03/17 17:20 Dose: 200 mls/hr Morphine Sulfate (Morphine) 4 mg IVP Q4H PRN PRN Reason: Pain, moderate (4-7) Last Admin: 12/03/17 16:57 Dose: 4 mg Ondansetron HCl (Zofran Inj) 4 mg IVP Q6H PRN PRN Reason: Nausea/Vomiting Last Admin: 12/03/17 09:09 Dose: 4 mg Oxycodone/Acetaminophen (Percocet 5/325 Mg Tab) 1 tab PO Q4H PRN PRN Reason: Pain, Mild (1-3) Stop: 12/04/17 18:23 Last Admin: 12/02/17 20:05 Dose: 1 tab Pantoprazole Sodium (Protonix Ec Tab) 40 mg PO ACB [facility] - Labs Labs: 12/03/17 07:50 12/03/17 07:50 - Constitutional Appears: Non-toxic, Chronically Ill - Head Exam Head Exam: NORMAL INSPECTION - ENT Exam ENT Exam: Mucous Membranes Moist - Neck Exam Neck Exam: absent: Meningismus - Respiratory Exam Respiratory Exam: Decreased Breath Sounds - Cardiovascular Exam Cardiovascular Exam: +S1, +S2 - GI/Abdominal Exam GI & Abdominal Exam: Soft. absent: Tenderness Assessment and Plan - Assessment and Plan (Free Text) Plan: Assessment Consider right upper quadarant area intra-abdominal fluid collection from biliary leak R/O abscess S/P CT-guided drainage S/P laparoscopic cholecystectomy HTN Plan continue Zosyn day 4; blood cx are negative; follow up cultures of the fluid collection will continue to monitor clinically
--- NOTE | 2017-12-06 13:02 | PN ---
DATE: 12/03/2017 SUBJECTIVE: Patient still complained of abdominal pain. Patient was seen by GI. She already had the ERCP with a stent placement, tolerated well. Dr. Sal Gilmore placed a bile drainage from outside. She drained 70 mL, seems to be doing well. She is still complaining of pain, but she feels better. PHYSICAL EXAMINATION VITAL SIGNS: Temperature 98.3, heart rate 83, blood pressure 97/57, respirations 20, saturation 98%. HEAD AND NECK: Normal. No JVD. No thyromegaly. CHEST: Clear. Good air entry. CARDIAC: First sound and second sound normal. ABDOMEN: Obese, tender in the upper abdomen with the tube connected to the bag, 70 mL. EXTREMITIES: No edema. NEUROLOGICAL: Normal. LABORATORY DATA: Shows white count 5.4, hemoglobin 9.8, hematocrit 30, platelets 229,000. Chemistry, 12/03/2017 here shows sodium 139, potassium 3.6, chloride 103, bicarbonate 28, BUN 11, creatinine 0.6. Patient had liver enzyme a little bit elevated, 76 AST, ALT 131, alkaline phosphatase is 143. IMPRESSION AND PLAN 1. Status post laparoscopic cholecystectomy with bile leak. Patient had endoscopic retrograde cholangiopancreatography with a stent and external bile drainage by Dr. Sal Gilmore. We will continue antibiotics. Continue current therapy. the patient's family have to change the bag and to flush it once a day. 2. Hypertension. 3. History of asthma, stable. 4. Morbid obesity. 5. Chronic osteoarthritis. PLAN: Continue current therapy. Follow up clinically. Sam Nieto MD
--- NOTE | 2017-12-06 16:27 | DS ---
HOSPITAL COURSE: The patient was admitted, given IV antibiotics. GI consult, initially Dr. Mattson, then Dr. Faye, saw the patient, biliary scan done. MRCP with and without contrast done, showed biliary disease . The patient had surgical consult with Dr. Dolan, Dr. Suarez also. Dr. Dolan first saw the patient and Dr. Suarez who had laparoscopic cholecystectomy done for her again saw the patient and told the patient to do ERCP and put has been done by Dr. Sal Gilmore, . The patient doing well and was discharged home. DISCHARGE DIAGNOSES: 1. Biloma, status post laparoscopic cholecystectomy. 2. Abdominal pain secondary to biloma. 3. Hypertension. 4. Obesity. 5. Prediabetes. Continue diet. Continue to follow instructions given to the patient. The patient was given Augmentin and was given also Percocet p.r.n. and was given change the drainage and to flush the drain and education was given to her son, he understand. We will follow up as outpatient. She will see Dr. Sal Gilmore in a week and also in 2 weeks she will see Dr. Faye. Sam Nieto MD
--- NOTE | 2017-12-06 16:27 | PN ---
DATE: 12/04/2017 SUBJECTIVE: The patient feels a little better. She was IV fluids. No nausea or vomiting. Pain is less and she is stable. PHYSICAL EXAMINATION: VITAL SIGNS: Temperature 97.7, heart rate 75, blood pressure 138/91, respirations 20, saturation 95% on room air. HEAD AND NECK: Normal. No JVD. No thyromegaly. CHEST: Clear, good air entry. CARDIAC: First sound and second sound are normal. ABDOMEN: Soft, tender on the upper abdomen. There is drain on the right side. EXTREMITIES: No edema. NEUROLOGIC: Normal. LABORATORY STUDY: Shows sodium 143, potassium 3.8, chloride 106, bicarb 28. BUN 8, creatinine 0.6. Liver function test is normal. ALT is 84, AST is . Her CBC shows white count 7.9, hemoglobin 9.9, hematocrit 31, and platelets 270. IMPRESSION: 1. Abdominal pain, due to biliary leak, status post endoscopic retrograde cholangiopancreatography and extended drainage. She will continue current therapy. The patient understand. She will be discharge today on Augmentin and Percocet p.r.n. 2. Anemia, dilutional from IV fluids. 3. Hypertension. 4. Morbid obesity. PLAN: Discharge the patient home. Follow up as outpatient. Sam Nieto MD
== END 2017-12-04 20:31 | disposition home or self-care (01) | DRG 557 ==
LOC: ED 16:15 → ERH 23:46 → 3RNO 12-01 01:40 → OBSVTOIN 12-02 09:31
PROVIDERS: ADMIT Internal Medicine; ATTEND Internal Medicine
PROC: 0F7D8DZ Dilation of Pancreatic Duct with Intraluminal Device, Via Natural or Artificial Opening Endoscopic (ICD-10-PCS; 2017-12-02)
PROC: 0F798DZ Dilation of Common Bile Duct with Intraluminal Device, Via Natural or Artificial Opening Endoscopic (ICD-10-PCS; 2017-12-02 13:30)
PROC: BW20ZZZ Computerized Tomography (CT Scan) of Abdomen (ICD-10-PCS; 2017-12-03)
PROC: 0W9G3ZZ Drainage of Peritoneal Cavity, Percutaneous Approach (ICD-10-PCS; principal; 2017-12-03 13:30)
DX: K91.5 Postcholecystectomy syndrome (principal); K65.1 Peritoneal abscess; E66.01 Morbid (severe) obesity due to excess calories; D64.9 Anemia, unspecified; G89.18 Other acute postprocedural pain; I10 Essential (primary) hypertension; J45.909 Unspecified asthma, uncomplicated; M17.10 Unilateral primary osteoarthritis, unspecified knee; R73.03 Prediabetes; Z79.899 Other long term (current) drug therapy; Z80.7 Family history of other malignant neoplasms of lymphoid, hematopoietic and related tissues; Z90.49 Acquired absence of other specified parts of digestive tract; Z68.30 Body mass index [BMI] 30.0-30.9, adult

== ENCOUNTER 2018-03-10 10:23 | Day surgery (SDC) | payer MEDICAID ==
[2018-03-10] MEDS ORDERED: Indomethacin 50 MG Suppository PR ONE (11:05)
[2018-03-10] MEDS ORDERED: Iohexol 240 (50 ml) ONE (11:06)
[2018-03-10] MEDS ORDERED: Propofol 10 mg/ml Inj (20 ML) ONE (11:56)
[2018-03-10] MEDS ORDERED: Midazolam 2 MG/2 ML VIAL ONE (11:57)
[2018-03-10] MEDS ORDERED: Sodium Chloride 0.9% 1,000 ML IV SCH (12:45)
--- NOTE | 2018-03-10 13:07 | RAD ---
PROCEDURE: ERCP HISTORY: ? CBD OBST COMPARISON: TECHNIQUE: Fluoroscopy was provided in the endoscopy suite. 18.5 seconds of fluoro time. 6.54 mGy cumulative dose. 6 images were obtained FINDINGS: Study shows opacification of the common duct. Portable films obtained after scope removal show contrast in the duodenum. No filling defects IMPRESSION: As above
[2018-03-10 13:33] VITALS: BP 122/73; PULSE 62; RESP 20; TEMP 98; O2SAT 98
--- NOTE | 2018-03-11 10:49 | RAD ---
HISTORY: h/o biliary stent, migration, confirm stent passed COMPARISON: No prior. FINDINGS: BOWEL: Normal. No obstruction. No free air. BONES: Normal. OTHER FINDINGS: There is some contrast in the distal common duct and duodenum. IMPRESSION: There is no visible biliary stent
== END 2018-03-10 14:00 | disposition home or self-care (01) ==
LOC: ENDO 10:23
PROVIDERS: ATTEND Internal Medicine
DX: Z09 Encounter for follow-up examination after completed treatment for conditions other than malignant neoplasm (principal); K91.89 Other postprocedural complications and disorders of digestive system; Z90.49 Acquired absence of other specified parts of digestive tract; J45.909 Unspecified asthma, uncomplicated; I10 Essential (primary) hypertension; K25.9 Gastric ulcer, unspecified as acute or chronic, without hemorrhage or perforation; Z87.19 Personal history of other diseases of the digestive system
CPT/HCPCS: 43260; 74018; J2001; J2250; J2704; J3010; J7030; J7040; Q9966